=== PATIENT | male | born 1935 | race Caucasian/White ===

== ENCOUNTER 2023-11-18 12:54 | Emergency (ER) | payer OTHER ==
--- OUTSIDE RECORDS SUMMARY | 2023-11-18 13:03 | XMS REPORT | Continuity of Care Document ---
Author Name Unknown Address [address] [facility] [address] [place] [address] [facility] thconnect Address [address] 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 Name Role Phone Lillian Youngblood Primary Care Physician [phone] Sugar Ozuna Attending Clinician [phone] Doctor Unassigned, [place] Attending Clinician U Ha Flores MD Attending Clinician [phone] HA OLIVARES Attending Clinician Unavail able HA OLIVARES Attending Clinician Unavail able Alissa RN, Jose A Attending Clinician Unavail able BILL CABRERA Attending Clinician Un available Malcolm Darling MD Attending Clinician [phone] Bill Cabrera MD Attending Clinician NURIA KUMAR Attending Clinician Kei Farley, Adc [facility] Main Attending Clinician Nuria Cai MD Attending Clinician [place] Attending Clinician UnavailDonn Escalona Attending Clinician Unavail able GAYLA GARY Attending Clinician Unavailable Cyndie Nguyen Attending Clinician [phone] Cyndie RODNEY Attending Clinician Unavailable Lab, Adc Fam Pob I Attending Clinician Unavailab nancy Gonsales ENDS DOWN CHECKERReyes Dickey Attending Clinician [phone] REYES GONSALES Attending Clinician Unavailable Carley ENDS DOWN CHECKER, Eliz Enriquez Attending Clinician [phone] RADIOLOGY Attending Clinician Unavailable Radiology Attending Clinician Unavailable Bryce PEDERSON, Nadja Attending Clinician [phone] Hector Santana MD Attending Clinician [phone] BILL CABRERA Admitting Clinician Un available Bill Cabrera MD Admitting Clinician Physician, No Primary or Family Admitting Clinic malcolm Unavailable Cyndie RODNEY Admitting Clinician Unavailable LILLIAN YOUNGBLOOD Admitting Clinician Unavail able Hector Santana MD Admitting Clinician Payers Payer Name Policy Type Policy Number Effective Date Expirati on Date Source MEDICARE PART A \\T\\ B [id number] 2001 00:00:00 [facility] [place] [id number] 2016 00:00:00 Problems Condition Name Condition Details Condition Category Status Onset Date Resolution Date Last Treatment Date Treating Clinician Comments Source Stroke-lik e symptoms Stroke-lik e symptoms Disease Active 09-13 00:00: 00 [facility] Thigh pain Thigh pain Disease Active 04-29 00:00: 00 [facility] Allergies, Adverse Reactions, Alerts Allergy Name Allergy Type Status Severity Reaction(s) Onset Date Inactive Date Treating Clinician Comments Source No Known Allergie s DA Active U 12-11 00:00: 00 [facility] No Known Allergie s DA Active U 12-11 00:00: 00 [facility] No Known Drug Allergie s DA Active U 05-14 00:00: 00 [facility] No Known Food Allergie s DA Active U 05-14 00:00: 00 [facility] No Known Other Allergie s DA Active U 05-14 00:00: 00 [facility] No Known Contrast Allergie s DA Active U 05-14 00:00: 00 [facility] No Known Drug Intolera nces DA Active U 2001-08 00:00: 00 [facility] NO KNOWN ALLERGIE S Drug Class Active [facility] Social History Social Habit Start Date Stop Date Quantity Comments Source History of tobacco use Current smoker [facility] History SDOH Social Connections Get Together [facility] History SDOH Social Connections Taoist [facility] History SDOH Social Connections Membership [facility] History SDOH Social Connections Meetings [facility] 2023-03-31 00:00:00 2023-03-31 00:00:00 Ex-drinker (finding) [facility] History of Social function 2023-02-28 00:00:00 2023-02-28 00:00:00 [facility] Exposure to SARS-CoV-2 (event) 2022-09-24 00:00:00 2022-10-04 09:10:00 Not sure [facility] Tobacco Comment 2022-10-04 00:00:00 2022-10-04 00:00:00 quit 20 yrs [facility] Tobacco use and exposure 2022-10-04 00:00:00 2022-10-04 00:00:00 Smokeless tobacco non-user [facility] History SDOH Alcohol Frequency 2022-09-13 00:00:00 2022-09-13 00:00:00 1 [facility] History SDOH Alcohol Std Drinks 2022-09-13 00:00:00 2022-09-13 00:00:00 0 [facility] History SDOH Alcohol Binge 2022-09-13 00:00:00 2022-09-13 00:00:00 1 [facility] History SDOH Social Connections Phone 2022-09-13 00:00:00 2022-09-13 00:00:00 5 [facility] History SDOH Social Connections Living 2022-09-13 00:00:00 2022-09-13 00:00:00 4 [facility] History SDOH Physical Activity DPW 2022-09-13 00:00:00 2022-09-13 00:00:00 3 [facility] History SDOH Physical Activity MPS 2022-09-13 00:00:00 2022-09-13 00:00:00 6 [facility] History SDOH Financial 2022-09-13 00:00:00 2022-09-13 00:00:00 5 [facility] History SDOH Food Worry 2022-09-13 00:00:00 2022-09-13 00:00:00 1 [facility] History SDOH Food Scarcity 2022-09-13 00:00:00 2022-09-13 00:00:00 1 [facility] History SDOH Transport Med 2022-09-13 00:00:00 2022-09-13 00:00:00 2 [facility] History SDOH Transport Non-Med 2022-09-13 00:00:00 2022-09-13 00:00:00 2 [facility] Sex Assigned At 1935 00:00:00 1935 00:00:00 [facility] Smoking Status Start Date Stop Date Source Ex-smoker 2022-10-04 00:00:00 2022-10-04 [facility]:00[facility]00 [facility] Medications Ordered Medication Name Filled Medication Name Start Date Stop Date Current Medication? Ordering Clinician Indication Dosage Frequency Signature (SIG) Comments Components Source levETIRAcet am 250 mg tablet 2022-08 00:00: 00 Yes [id number] TAKE ONE TABLET BY MOUTH EVERY MORNING AND IN THE EVENING [facility] LEVETIRACET AM 250 mg tablet 2022-08 00:00: 00 Yes [id number] TAKE ONE TABLET BY MOUTH EVERY MORNING AND TAKE ONE TABLET BY MOUTH EVERY EVENING [facility] LEVETIRACET AM 250 mg tablet 2022-08 0-20 00:00: 00 07-12 00:00 :00 No [id number] TAKE ONE TABLET BY MOUTH EVERY MORNING AND TAKE ONE TABLET BY MOUTH EVERY EVENING [facility] LEVETIRACET AM 250 mg tablet 2022-0 915 00:00: 00 Yes [id number] TAKE ONE TABLET BY MOUTH EVERY MORNING AND TAKE ONE TABLET BY MOUTH EVERY EVENING [facility] LEVETIRACET AM 250 mg tablet 0 915 00:00: 00 06-09 00:00 :00 No [id number] TAKE ONE TABLET BY MOUTH EVERY MORNING AND TAKE ONE TABLET BY MOUTH EVERY EVENING [facility] omeprazole 40 mg capsule 0 8- 00:00: 00 Yes 40mg Take 1 capsule by mouth in the morning. [facility] omeprazole 40 mg capsule 2022-0 8 00:00: 00 Yes 40mg Take 1 capsule by mouth in the morning. [facility] omeprazole 40 mg capsule 0 8 00:00: 00 Yes 40mg Take 1 capsule by mouth in the morning. [facility] levETIRAcet am 250 mg tablet 0 8 00:00: 00 Yes [id number] 250mg Take 1 tablet by mouth in the morning and 1 tablet in the evening. [facility] levETIRAcet am 250 mg tablet 0 8-11 00:00: 00 Yes [id number] 250mg Take 1 tablet by mouth in the morning and 1 tablet in the evening. [facility] levETIRAcet am 250 mg tablet 2022-0 8-11 00:00: 00 05-05 00:00 :00 No [id number] 250mg Take 1 tablet by mouth in the morning and 1 tablet in the evening. [facility] meloxicam 7.5 mg tablet 2022-0 7-19 00:00: 00 Yes 7.5mg Take 1 tablet by mouth in the morning. [facility] meloxicam 7.5 mg tablet 0 719 00:00: 00 Yes 7.5mg Take 1 tablet by mouth in the morning. [facility] meloxicam 7.5 mg tablet 7 00:00: 00 Yes 7.5mg Take 1 tablet by mouth in the morning. [facility] perflutren protein-A microsphr (OPTISON) injection 3 mL 09-14 18:30: 00 09-14 17:55 :00 No [id number] 3mL 3 mL, IV Push, ONCE, 1 dose, On Mon09/14/22 at 1230, Routine [facility] Saline Bubble Study 09-14 18:23: 17 Yes [id number] 6mL 6 mL, Injection, SEE-INSTRU CTIONS, Starting on Mon09/14/22 at 1223, Until Discontinu ed, Routine [facility] Saline Bubble Study 09-14 18:23: 15 Yes [id number] 6mL 6 mL, Injection, SEE-INSTRU CTIONS, Starting on Mon09/14/22 at 1223, Until Discontinu ed, Routine [facility] ezetimibe (ZETIA) tablet 10 mg 09-14 15:00: 00 Yes 10mg 10 mg, Oral, DAILY, First dose on Mon09/14/22 at 0900, Until Discontinu ed, Routine [facility] ERGOCALCIFE ROL, VITAMIN D2, (VITAMIN D ORAL) 09-14 14:37: 24 Yes Take by mouth. [facility] PREDNISONE, BULK, MISC 09-14 14:37: 24 Yes 10mg 10 mg. [facility] rosuvastati n 40 mg tablet 09-14 14:37: 24 Yes 40mg Take 40 mg by mouth at bedtime. [facility] lisinopriL 10 mg tablet 09-14 14:37: 24 Yes 10mg Take 10 mg by mouth daily. [facility] fluticasone /umeclidin/ vilanter (TRELEGY ELLIPTA INHALE) 09-14 14:37: 24 Yes Inhale. [facility] pumpkin seed oil/saw palmetto (SAW PALMETTO-PU MPKIN SEED OIL ORAL) 09-14 14:37: 24 Yes Take by mouth. [facility] amLODIPine (NORVASC) 10 mg tablet 09-14 14:37: 24 Yes 5mg Take 5 mg by mouth daily. [facility] levothyroxi ne (SYNTHROID) 125 mcg tablet 09-14 14:37: 24 Yes 125ug Take 125 mcg by mouth every morning. [facility] tamsulosin (FLOMAX) 0.4 mg 24 hr capsule 09-14 14:37: 24 Yes Take by mouth daily. [facility] NAPROXEN SODIUM (ALEVE ORAL) 09-14 14:37: 24 Yes Take by mouth. [facility] aspirin 81 mg chewable tablet 09-14 14:37: 24 Yes 81mg Take 81 mg by mouth daily. [facility] SAW PALMETTO ORAL 09-14 14:37: 24 Yes 900mg Take 900 mg by mouth. [facility] CALCIUM-MAG NESIUM-ZINC ORAL 09-14 14:37: 24 Yes Take by mouth. [facility] folic acid (FOLVITE) 800 mcg tablet 09-14 14:37: 24 Yes 800ug Take 800 mcg by mouth daily. [facility] Cranberry Extract (CRANBERRY) 450 mg Tab 09-14 14:37: 24 Yes 450mg Take 450 mg by mouth. [facility] pyridoxine, vitamin B6, (VITAMIN B-6) 200 mg tablet 09-14 14:37: 24 Yes 200mg Take 200 mg by mouth daily. [facility] ascorbic acid, vitamin C, (VITAMIN C) 500 mg tablet 09-14 14:37: 24 Yes 500mg Take 500 mg by mouth daily. [facility] DOCOSAHEXAN OIC ACID/EPA (FISH OIL ORAL) 09-14 14:37: 24 Yes 3000mg Take 3,000 mg by mouth. [facility] vitamin B-12 (VITAMIN B-12) 1,000 mcg tablet 09-14 14:37: 24 Yes 1000ug Take 1,000 mcg by mouth daily. [facility] ERGOCALCIFE ROL, VITAMIN D2, (VITAMIN D ORAL) 09-14 14:37: 24 Yes Take by mouth. [facility] PREDNISONE, BULK, MISC 09-14 14:37: 24 Yes 10mg 10 mg. [facility] rosuvastati n 40 mg tablet 09-14 14:37: 24 Yes 40mg Take 40 mg by mouth at bedtime. [facility] lisinopriL 10 mg tablet 09-14 14:37: 24 Yes 10mg Take 10 mg by mouth daily. [facility] fluticasone /umeclidin/ vilanter (TRELEGY ELLIPTA INHALE) 09-14 14:37: 24 Yes Inhale. [facility] pumpkin seed oil/saw palmetto (SAW PALMETTO-PU MPKIN SEED OIL ORAL) 09-14 14:37: 24 Yes Take by mouth. [facility] amLODIPine (NORVASC) 10 mg tablet 09-14 14:37: 24 Yes 5mg Take 5 mg by mouth daily. [facility] levothyroxi ne (SYNTHROID) 125 mcg tablet 09-14 14:37: 24 Yes 125ug Take 125 mcg by mouth every morning. [facility] tamsulosin (FLOMAX) 0.4 mg 24 hr capsule 09-14 14:37: 24 Yes Take by mouth daily. [facility] NAPROXEN SODIUM (ALEVE ORAL) 09-14 14:37: 24 Yes Take by mouth. [facility] aspirin 81 mg chewable tablet 09-14 14:37: 24 Yes 81mg Take 81 mg by mouth daily. [facility] SAW PALMETTO ORAL 09-14 14:37: 24 Yes 900mg Take 900 mg by mouth. [facility] CALCIUM-MAG NESIUM-ZINC ORAL 09-14 14:37: 24 Yes Take by mouth. [facility] folic acid (FOLVITE) 800 mcg tablet 09-14 14:37: 24 Yes 800ug Take 800 mcg by mouth daily. [facility] Cranberry Extract (CRANBERRY) 450 mg Tab 09-14 14:37: 24 Yes 450mg Take 450 mg by mouth. [facility] pyridoxine, vitamin B6, (VITAMIN B-6) 200 mg tablet 09-14 14:37: 24 Yes 200mg Take 200 mg by mouth daily. [facility] ascorbic acid, vitamin C, (VITAMIN C) 500 mg tablet 09-14 14:37: 24 Yes 500mg Take 500 mg by mouth daily. [facility] DOCOSAHEXAN OIC ACID/EPA (FISH OIL ORAL) 09-14 14:37: 24 Yes 3000mg Take 3,000 mg by mouth. [facility] vitamin B-12 (VITAMIN B-12) 1,000 mcg tablet 09-14 14:37: 24 Yes 1000ug Take 1,000 mcg by mouth daily. [facility] ERGOCALCIFE ROL, VITAMIN D2, (VITAMIN D ORAL) 09-14 14:37: 24 Yes Take by mouth. [facility] PREDNISONE, BULK, MISC 09-14 14:37: 24 Yes 10mg 10 mg. [facility] rosuvastati n 40 mg tablet 09-14 14:37: 24 Yes 40mg Take 40 mg by mouth at bedtime. [facility] lisinopriL 10 mg tablet 09-14 14:37: 24 Yes 10mg Take 10 mg by mouth daily. [facility] fluticasone /umeclidin/ vilanter (TRELEGY ELLIPTA INHALE) 09-14 14:37: 24 Yes Inhale. [facility] pumpkin seed oil/saw palmetto (SAW PALMETTO-PU MPKIN SEED OIL ORAL) 09-14 14:37: 24 Yes Take by mouth. [facility] amLODIPine (NORVASC) 10 mg tablet 09-14 14:37: 24 Yes 5mg Take 5 mg by mouth daily. [facility] levothyroxi ne (SYNTHROID) 125 mcg tablet 09-14 14:37: 24 Yes 125ug Take 125 mcg by mouth every morning. [facility] tamsulosin (FLOMAX) 0.4 mg 24 hr capsule 09-14 14:37: 24 Yes Take by mouth daily. [facility] NAPROXEN SODIUM (ALEVE ORAL) 09-14 14:37: 24 Yes Take by mouth. [facility] aspirin 81 mg chewable tablet 09-14 14:37: 24 Yes 81mg Take 81 mg by mouth daily. [facility] SAW PALMETTO ORAL 09-14 14:37: 24 Yes 900mg Take 900 mg by mouth. [facility] CALCIUM-MAG NESIUM-ZINC ORAL 09-14 14:37: 24 Yes Take by mouth. [facility] folic acid (FOLVITE) 800 mcg tablet 09-14 14:37: 24 Yes 800ug Take 800 mcg by mouth daily. [facility] Cranberry Extract (CRANBERRY) 450 mg Tab 09-14 14:37: 24 Yes 450mg Take 450 mg by mouth. [facility] pyridoxine, vitamin B6, (VITAMIN B-6) 200 mg tablet 09-14 14:37: 24 Yes 200mg Take 200 mg by mouth daily. [facility] ascorbic acid, vitamin C, (VITAMIN C) 500 mg tablet 09-14 14:37: 24 Yes 500mg Take 500 mg by mouth daily. [facility] DOCOSAHEXAN OIC ACID/EPA (FISH OIL ORAL) 09-14 14:37: 24 Yes 3000mg Take 3,000 mg by mouth. [facility] vitamin B-12 (VITAMIN B-12) 1,000 mcg tablet 09-14 14:37: 24 Yes 1000ug Take 1,000 mcg by mouth daily. [facility] ERGOCALCIFE ROL, VITAMIN D2, (VITAMIN D ORAL) 09-14 14:37: 24 Yes Take by mouth. [facility] PREDNISONE, BULK, MISC 09-14 14:37: 24 Yes 10mg 10 mg. [facility] rosuvastati n 40 mg tablet 09-14 14:37: 24 Yes 40mg Take 40 mg by mouth at bedtime. [facility] lisinopriL 10 mg tablet 09-14 14:37: 24 Yes 10mg Take 10 mg by mouth daily. [facility] fluticasone /umeclidin/ vilanter (TRELEGY ELLIPTA INHALE) 09-14 14:37: 24 Yes Inhale. [facility] pumpkin seed oil/saw palmetto (SAW PALMETTO-PU MPKIN SEED OIL ORAL) 09-14 14:37: 24 Yes Take by mouth. [facility] amLODIPine (NORVASC) 10 mg tablet 09-14 14:37: 24 Yes 5mg Take 5 mg by mouth daily. [facility] levothyroxi ne (SYNTHROID) 125 mcg tablet 09-14 14:37: 24 Yes 125ug Take 125 mcg by mouth every morning. [facility] tamsulosin (FLOMAX) 0.4 mg 24 hr capsule 09-14 14:37: 24 Yes Take by mouth daily. [facility] NAPROXEN SODIUM (ALEVE ORAL) 09-14 14:37: 24 Yes Take by mouth. [facility] aspirin 81 mg chewable tablet 09-14 14:37: 24 Yes 81mg Take 81 mg by mouth daily. [facility] SAW PALMETTO ORAL 09-14 14:37: 24 Yes 900mg Take 900 mg by mouth. [facility] CALCIUM-MAG NESIUM-ZINC ORAL 09-14 14:37: 24 Yes Take by mouth. [facility] folic acid (FOLVITE) 800 mcg tablet 09-14 14:37: 24 Yes 800ug Take 800 mcg by mouth daily. [facility] Cranberry Extract (CRANBERRY) 450 mg Tab 09-14 14:37: 24 Yes 450mg Take 450 mg by mouth. [facility] pyridoxine, vitamin B6, (VITAMIN B-6) 200 mg tablet 09-14 14:37: 24 Yes 200mg Take 200 mg by mouth daily. [facility] ascorbic acid, vitamin C, (VITAMIN C) 500 mg tablet 09-14 14:37: 24 Yes 500mg Take 500 mg by mouth daily. [facility] DOCOSAHEXAN OIC ACID/EPA (FISH OIL ORAL) 09-14 14:37: 24 Yes 3000mg Take 3,000 mg by mouth. [facility] vitamin B-12 (VITAMIN B-12) 1,000 mcg tablet 09-14 14:37: 24 Yes 1000ug Take 1,000 mcg by mouth daily. [facility] ERGOCALCIFE ROL, VITAMIN D2, (VITAMIN D ORAL) 09-14 14:37: 24 Yes Take by mouth. [facility] PREDNISONE, BULK, MISC 09-14 14:37: 24 Yes 10mg 10 mg. [facility] rosuvastati n 40 mg tablet 09-14 14:37: 24 Yes 40mg Take 40 mg by mouth at bedtime. [facility] lisinopriL 10 mg tablet 09-14 14:37: 24 Yes 10mg Take 10 mg by mouth daily. [facility] fluticasone /umeclidin/ vilanter (TRELEGY ELLIPTA INHALE) 09-14 14:37: 24 Yes Inhale. [facility] pumpkin seed oil/saw palmetto (SAW PALMETTO-PU MPKIN SEED OIL ORAL) 09-14 14:37: 24 Yes Take by mouth. [facility] amLODIPine (NORVASC) 10 mg tablet 09-14 14:37: 24 Yes 5mg Take 5 mg by mouth daily. [facility] levothyroxi ne (SYNTHROID) 125 mcg tablet 09-14 14:37: 24 Yes 125ug Take 125 mcg by mouth every morning. [facility] tamsulosin (FLOMAX) 0.4 mg 24 hr capsule 09-14 14:37: 24 Yes Take by mouth daily. [facility] NAPROXEN SODIUM (ALEVE ORAL) 09-14 14:37: 24 Yes Take by mouth. [facility] aspirin 81 mg chewable tablet 09-14 14:37: 24 Yes 81mg Take 81 mg by mouth daily. [facility] SAW PALMETTO ORAL 09-14 14:37: 24 Yes 900mg Take 900 mg by mouth. [facility] CALCIUM-MAG NESIUM-ZINC ORAL 09-14 14:37: 24 Yes Take by mouth. [facility] folic acid (FOLVITE) 800 mcg tablet 09-14 14:37: 24 Yes 800ug Take 800 mcg by mouth daily. [facility] Cranberry Extract (CRANBERRY) 450 mg Tab 09-14 14:37: 24 Yes 450mg Take 450 mg by mouth. [facility] pyridoxine, vitamin B6, (VITAMIN B-6) 200 mg tablet 09-14 14:37: 24 Yes 200mg Take 200 mg by mouth daily. [facility] ascorbic acid, vitamin C, (VITAMIN C) 500 mg tablet 09-14 14:37: 24 Yes 500mg Take 500 mg by mouth daily. [facility] DOCOSAHEXAN OIC ACID/EPA (FISH OIL ORAL) 09-14 14:37: 24 Yes 3000mg Take 3,000 mg by mouth. [facility] vitamin B-12 (VITAMIN B-12) 1,000 mcg tablet 09-14 14:37: 24 Yes 1000ug Take 1,000 mcg by mouth daily. [facility] ERGOCALCIFE ROL, VITAMIN D2, (VITAMIN D ORAL) 09-14 14:37: 24 Yes Take by mouth. [facility] PREDNISONE, BULK, MISC 09-14 14:37: 24 Yes 10mg 10 mg. [facility] rosuvastati n 40 mg tablet 09-14 14:37: 24 Yes 40mg Take 40 mg by mouth at bedtime. [facility] lisinopriL 10 mg tablet 09-14 14:37: 24 Yes 10mg Take 10 mg by mouth daily. [facility] fluticasone /umeclidin/ vilanter (TRELEGY ELLIPTA INHALE) 09-14 14:37: 24 Yes Inhale. [facility] pumpkin seed oil/saw palmetto (SAW PALMETTO-PU MPKIN SEED OIL ORAL) 09-14 14:37: 24 Yes Take by mouth. [facility] amLODIPine (NORVASC) 10 mg tablet 09-14 14:37: 24 Yes 5mg Take 5 mg by mouth daily. [facility] levothyroxi ne (SYNTHROID) 125 mcg tablet 09-14 14:37: 24 Yes 125ug Take 125 mcg by mouth every morning. [facility] tamsulosin (FLOMAX) 0.4 mg 24 hr capsule 09-14 14:37: 24 Yes Take by mouth daily. [facility] NAPROXEN SODIUM (ALEVE ORAL) 09-14 14:37: 24 Yes Take by mouth. [facility] aspirin 81 mg chewable tablet 09-14 14:37: 24 Yes 81mg Take 81 mg by mouth daily. [facility] SAW PALMETTO ORAL 09-14 14:37: 24 Yes 900mg Take 900 mg by mouth. [facility] CALCIUM-MAG NESIUM-ZINC ORAL 09-14 14:37: 24 Yes Take by mouth. [facility] folic acid (FOLVITE) 800 mcg tablet 09-14 14:37: 24 Yes 800ug Take 800 mcg by mouth daily. [facility] Cranberry Extract (CRANBERRY) 450 mg Tab 09-14 14:37: 24 Yes 450mg Take 450 mg by mouth. [facility] pyridoxine, vitamin B6, (VITAMIN B-6) 200 mg tablet 09-14 14:37: 24 Yes 200mg Take 200 mg by mouth daily. [facility] ascorbic acid, vitamin C, (VITAMIN C) 500 mg tablet 09-14 14:37: 24 Yes 500mg Take 500 mg by mouth daily. [facility] DOCOSAHEXAN OIC ACID/EPA (FISH OIL ORAL) 09-14 14:37: 24 Yes 3000mg Take 3,000 mg by mouth. [facility] vitamin B-12 (VITAMIN B-12) 1,000 mcg tablet 09-14 14:37: 24 Yes 1000ug Take 1,000 mcg by mouth daily. [facility] ERGOCALCIFE ROL, VITAMIN D2, (VITAMIN D ORAL) 09-14 14:37: 24 Yes Take by mouth. [facility] PREDNISONE, BULK, MISC 09-14 14:37: 24 Yes 10mg 10 mg. [facility] rosuvastati n 40 mg tablet 09-14 14:37: 24 Yes 40mg Take 40 mg by mouth at bedtime. [facility] lisinopriL 10 mg tablet 09-14 14:37: 24 Yes 10mg Take 10 mg by mouth daily. [facility] fluticasone /umeclidin/ vilanter (TRELEGY ELLIPTA INHALE) 09-14 14:37: 24 Yes Inhale. [facility] pumpkin seed oil/saw palmetto (SAW PALMETTO-PU MPKIN SEED OIL ORAL) 09-14 14:37: 24 Yes Take by mouth. [facility] amLODIPine (NORVASC) 10 mg tablet 09-14 14:37: 24 Yes 5mg Take 5 mg by mouth daily. [facility] levothyroxi ne (SYNTHROID) 125 mcg tablet 09-14 14:37: 24 Yes 125ug Take 125 mcg by mouth every morning. [facility] tamsulosin (FLOMAX) 0.4 mg 24 hr capsule 09-14 14:37: 24 Yes Take by mouth daily. [facility] NAPROXEN SODIUM (ALEVE ORAL) 09-14 14:37: 24 Yes Take by mouth. [facility] aspirin 81 mg chewable tablet 09-14 14:37: 24 Yes 81mg Take 81 mg by mouth daily. [facility] SAW PALMETTO ORAL 09-14 14:37: 24 Yes 900mg Take 900 mg by mouth. [facility] CALCIUM-MAG NESIUM-ZINC ORAL 09-14 14:37: 24 Yes Take by mouth. [facility] folic acid (FOLVITE) 800 mcg tablet 09-14 14:37: 24 Yes 800ug Take 800 mcg by mouth daily. [facility] Cranberry Extract (CRANBERRY) 450 mg Tab 09-14 14:37: 24 Yes 450mg Take 450 mg by mouth. [facility] pyridoxine, vitamin B6, (VITAMIN B-6) 200 mg tablet 09-14 14:37: 24 Yes 200mg Take 200 mg by mouth daily. [facility] ascorbic acid, vitamin C, (VITAMIN C) 500 mg tablet 09-14 14:37: 24 Yes 500mg Take 500 mg by mouth daily. [facility] DOCOSAHEXAN OIC ACID/EPA (FISH OIL ORAL) 09-14 14:37: 24 Yes 3000mg Take 3,000 mg by mouth. [facility] vitamin B-12 (VITAMIN B-12) 1,000 mcg tablet 09-14 14:37: 24 Yes 1000ug Take 1,000 mcg by mouth daily. [facility] ERGOCALCIFE ROL, VITAMIN D2, (VITAMIN D ORAL) 09-14 14:37: 24 Yes Take by mouth. [facility] PREDNISONE, BULK, MISC 09-14 14:37: 24 Yes 10mg 10 mg. [facility] rosuvastati n 40 mg tablet 09-14 14:37: 24 Yes 40mg Take 40 mg by mouth at bedtime. [facility] lisinopriL 10 mg tablet 09-14 14:37: 24 Yes 10mg Take 10 mg by mouth daily. [facility] fluticasone /umeclidin/ vilanter (TRELEGY ELLIPTA INHALE) 09-14 14:37: 24 Yes Inhale. [facility] pumpkin seed oil/saw palmetto (SAW PALMETTO-PU MPKIN SEED OIL ORAL) 09-14 14:37: 24 Yes Take by mouth. [facility] amLODIPine (NORVASC) 10 mg tablet 09-14 14:37: 24 Yes 5mg Take 5 mg by mouth daily. [facility] levothyroxi ne (SYNTHROID) 125 mcg tablet 09-14 14:37: 24 Yes 125ug Take 125 mcg by mouth every morning. [facility] tamsulosin (FLOMAX) 0.4 mg 24 hr capsule 09-14 14:37: 24 Yes Take by mouth daily. [facility] NAPROXEN SODIUM (ALEVE ORAL) 09-14 14:37: 24 Yes Take by mouth. [facility] aspirin 81 mg chewable tablet 09-14 14:37: 24 Yes 81mg Take 81 mg by mouth daily. [facility] SAW PALMETTO ORAL 09-14 14:37: 24 Yes 900mg Take 900 mg by mouth. [facility] CALCIUM-MAG NESIUM-ZINC ORAL 09-14 14:37: 24 Yes Take by mouth. [facility] folic acid (FOLVITE) 800 mcg tablet 09-14 14:37: 24 Yes 800ug Take 800 mcg by mouth daily. [facility] Cranberry Extract (CRANBERRY) 450 mg Tab 09-14 14:37: 24 Yes 450mg Take 450 mg by mouth. [facility] pyridoxine, vitamin B6, (VITAMIN B-6) 200 mg tablet 09-14 14:37: 24 Yes 200mg Take 200 mg by mouth daily. [facility] ascorbic acid, vitamin C, (VITAMIN C) 500 mg tablet 09-14 14:37: 24 Yes 500mg Take 500 mg by mouth daily. [facility] DOCOSAHEXAN OIC ACID/EPA (FISH OIL ORAL) 09-14 14:37: 24 Yes 3000mg Take 3,000 mg by mouth. [facility] vitamin B-12 (VITAMIN B-12) 1,000 mcg tablet 09-14 14:37: 24 Yes 1000ug Take 1,000 mcg by mouth daily. [facility] ERGOCALCIFE ROL, VITAMIN D2, (VITAMIN D ORAL) 09-14 14:37: 24 Yes Take by mouth. [facility] PREDNISONE, BULK, MISC 09-14 14:37: 24 Yes 10mg 10 mg. [facility] rosuvastati n 40 mg tablet 09-14 14:37: 24 Yes 40mg Take 40 mg by mouth at bedtime. [facility] lisinopriL 10 mg tablet 09-14 14:37: 24 Yes 10mg Take 10 mg by mouth daily. [facility] fluticasone /umeclidin/ vilanter (TRELEGY ELLIPTA INHALE) 09-14 14:37: 24 Yes Inhale. [facility] pumpkin seed oil/saw palmetto (SAW PALMETTO-PU MPKIN SEED OIL ORAL) 09-14 14:37: 24 Yes Take by mouth. [facility] amLODIPine (NORVASC) 10 mg tablet 09-14 14:37: 24 Yes 5mg Take 5 mg by mouth daily. [facility] levothyroxi ne (SYNTHROID) 125 mcg tablet 09-14 14:37: 24 Yes 125ug Take 125 mcg by mouth every morning. [facility] tamsulosin (FLOMAX) 0.4 mg 24 hr capsule 09-14 14:37: 24 Yes Take by mouth daily. [facility] NAPROXEN SODIUM (ALEVE ORAL) 09-14 14:37: 24 Yes Take by mouth. [facility] aspirin 81 mg chewable tablet 09-14 14:37: 24 Yes 81mg Take 81 mg by mouth daily. [facility] SAW PALMETTO ORAL 09-14 14:37: 24 Yes 900mg Take 900 mg by mouth. [facility] CALCIUM-MAG NESIUM-ZINC ORAL 09-14 14:37: 24 Yes Take by mouth. [facility] folic acid (FOLVITE) 800 mcg tablet 09-14 14:37: 24 Yes 800ug Take 800 mcg by mouth daily. [facility] Cranberry Extract (CRANBERRY) 450 mg Tab 09-14 14:37: 24 Yes 450mg Take 450 mg by mouth. [facility] pyridoxine, vitamin B6, (VITAMIN B-6) 200 mg tablet 09-14 14:37: 24 Yes 200mg Take 200 mg by mouth daily. [facility] ascorbic acid, vitamin C, (VITAMIN C) 500 mg tablet 09-14 14:37: 24 Yes 500mg Take 500 mg by mouth daily. [facility] DOCOSAHEXAN OIC ACID/EPA (FISH OIL ORAL) 09-14 14:37: 24 Yes 3000mg Take 3,000 mg by mouth. [facility] vitamin B-12 (VITAMIN B-12) 1,000 mcg tablet 09-14 14:37: 24 Yes 1000ug Take 1,000 mcg by mouth daily. [facility] ERGOCALCIFE ROL, VITAMIN D2, (VITAMIN D ORAL) 09-14 14:37: 24 Yes Take by mouth. [facility] PREDNISONE, BULK, MISC 09-14 14:37: 24 Yes 10mg 10 mg. [facility] rosuvastati n 40 mg tablet 09-14 14:37: 24 Yes 40mg Take 40 mg by mouth at bedtime. [facility] lisinopriL 10 mg tablet 09-14 14:37: 24 Yes 10mg Take 10 mg by mouth daily. [facility] fluticasone /umeclidin/ vilanter (TRELEGY ELLIPTA INHALE) 09-14 14:37: 24 Yes Inhale. [facility] pumpkin seed oil/saw palmetto (SAW PALMETTO-PU MPKIN SEED OIL ORAL) 09-14 14:37: 24 Yes Take by mouth. [facility] amLODIPine (NORVASC) 10 mg tablet 09-14 14:37: 24 Yes 5mg Take 5 mg by mouth daily. [facility] levothyroxi ne (SYNTHROID) 125 mcg tablet 09-14 14:37: 24 Yes 125ug Take 125 mcg by mouth every morning. [facility] tamsulosin (FLOMAX) 0.4 mg 24 hr capsule 09-14 14:37: 24 Yes Take by mouth daily. [facility] NAPROXEN SODIUM (ALEVE ORAL) 09-14 14:37: 24 Yes Take by mouth. [facility] aspirin 81 mg chewable tablet 09-14 14:37: 24 Yes 81mg Take 81 mg by mouth daily. [facility] SAW PALMETTO ORAL 09-14 14:37: 24 Yes 900mg Take 900 mg by mouth. [facility] CALCIUM-MAG NESIUM-ZINC ORAL 09-14 14:37: 24 Yes Take by mouth. [facility] folic acid (FOLVITE) 800 mcg tablet 09-14 14:37: 24 Yes 800ug Take 800 mcg by mouth daily. [facility] Cranberry Extract (CRANBERRY) 450 mg Tab 09-14 14:37: 24 Yes 450mg Take 450 mg by mouth. [facility] pyridoxine, vitamin B6, (VITAMIN B-6) 200 mg tablet 09-14 14:37: 24 Yes 200mg Take 200 mg by mouth daily. [facility] ascorbic acid, vitamin C, (VITAMIN C) 500 mg tablet 09-14 14:37: 24 Yes 500mg Take 500 mg by mouth daily. [facility] DOCOSAHEXAN OIC ACID/EPA (FISH OIL ORAL) 09-14 14:37: 24 Yes 3000mg Take 3,000 mg by mouth. [facility] vitamin B-12 (VITAMIN B-12) 1,000 mcg tablet 09-14 14:37: 24 Yes 1000ug Take 1,000 mcg by mouth daily. [facility] ERGOCALCIFE ROL, VITAMIN D2, (VITAMIN D ORAL) 09-14 14:37: 24 Yes Take by mouth. [facility] PREDNISONE, BULK, MISC 09-14 14:37: 24 Yes 10mg 10 mg. [facility] rosuvastati n 40 mg tablet 09-14 14:37: 24 Yes 40mg Take 40 mg by mouth at bedtime. [facility] lisinopriL 10 mg tablet 09-14 14:37: 24 Yes 10mg Take 10 mg by mouth daily. [facility] fluticasone /umeclidin/ vilanter (TRELEGY ELLIPTA INHALE) 09-14 14:37: 24 Yes Inhale. [facility] pumpkin seed oil/saw palmetto (SAW PALMETTO-PU MPKIN SEED OIL ORAL) 09-14 14:37: 24 Yes Take by mouth. [facility] amLODIPine (NORVASC) 10 mg tablet 09-14 14:37: 24 Yes 5mg Take 5 mg by mouth daily. [facility] levothyroxi ne (SYNTHROID) 125 mcg tablet 09-14 14:37: 24 Yes 125ug Take 125 mcg by mouth every morning. [facility] tamsulosin (FLOMAX) 0.4 mg 24 hr capsule 09-14 14:37: 24 Yes Take by mouth daily. [facility] NAPROXEN SODIUM (ALEVE ORAL) 09-14 14:37: 24 Yes Take by mouth. [facility] aspirin 81 mg chewable tablet 09-14 14:37: 24 Yes 81mg Take 81 mg by mouth daily. [facility] SAW PALMETTO ORAL 09-14 14:37: 24 Yes 900mg Take 900 mg by mouth. [facility] CALCIUM-MAG NESIUM-ZINC ORAL 09-14 14:37: 24 Yes Take by mouth. [facility] folic acid (FOLVITE) 800 mcg tablet 09-14 14:37: 24 Yes 800ug Take 800 mcg by mouth daily. [facility] Cranberry Extract (CRANBERRY) 450 mg Tab 09-14 14:37: 24 Yes 450mg Take 450 mg by mouth. [facility] pyridoxine, vitamin B6, (VITAMIN B-6) 200 mg tablet 09-14 14:37: 24 Yes 200mg Take 200 mg by mouth daily. [facility] ascorbic acid, vitamin C, (VITAMIN C) 500 mg tablet 09-14 14:37: 24 Yes 500mg Take 500 mg by mouth daily. [facility] DOCOSAHEXAN OIC ACID/EPA (FISH OIL ORAL) 09-14 14:37: 24 Yes 3000mg Take 3,000 mg by mouth. [facility] vitamin B-12 (VITAMIN B-12) 1,000 mcg tablet 09-14 14:37: 24 Yes 1000ug Take 1,000 mcg by mouth daily. [facility] ERGOCALCIFE ROL, VITAMIN D2, (VITAMIN D ORAL) 09-14 14:37: 24 Yes Take by mouth. [facility] PREDNISONE, BULK, MISC 09-14 14:37: 24 Yes 10mg 10 mg. [facility] rosuvastati n 40 mg tablet 09-14 14:37: 24 Yes 40mg Take 40 mg by mouth at bedtime. [facility] lisinopriL 10 mg tablet 09-14 14:37: 24 Yes 10mg Take 10 mg by mouth daily. [facility] fluticasone /umeclidin/ vilanter (TRELEGY ELLIPTA INHALE) 09-14 14:37: 24 Yes Inhale. [facility] pumpkin seed oil/saw palmetto (SAW PALMETTO-PU MPKIN SEED OIL ORAL) 09-14 14:37: 24 Yes Take by mouth. [facility] amLODIPine (NORVASC) 10 mg tablet 09-14 14:37: 24 Yes 5mg Take 5 mg by mouth daily. [facility] levothyroxi ne (SYNTHROID) 125 mcg tablet 09-14 14:37: 24 Yes 125ug Take 125 mcg by mouth every morning. [facility] tamsulosin (FLOMAX) 0.4 mg 24 hr capsule 09-14 14:37: 24 Yes Take by mouth daily. [facility] NAPROXEN SODIUM (ALEVE ORAL) 09-14 14:37: 24 Yes Take by mouth. [facility] aspirin 81 mg chewable tablet 09-14 14:37: 24 Yes 81mg Take 81 mg by mouth daily. [facility] SAW PALMETTO ORAL 09-14 14:37: 24 Yes 900mg Take 900 mg by mouth. [facility] CALCIUM-MAG NESIUM-ZINC ORAL 09-14 14:37: 24 Yes Take by mouth. [facility] folic acid (FOLVITE) 800 mcg tablet 09-14 14:37: 24 Yes 800ug Take 800 mcg by mouth daily. [facility] Cranberry Extract (CRANBERRY) 450 mg Tab 09-14 14:37: 24 Yes 450mg Take 450 mg by mouth. [facility] pyridoxine, vitamin B6, (VITAMIN B-6) 200 mg tablet 09-14 14:37: 24 Yes 200mg Take 200 mg by mouth daily. [facility] ascorbic acid, vitamin C, (VITAMIN C) 500 mg tablet 09-14 14:37: 24 Yes 500mg Take 500 mg by mouth daily. [facility] DOCOSAHEXAN OIC ACID/EPA (FISH OIL ORAL) 09-14 14:37: 24 Yes 3000mg Take 3,000 mg by mouth. [facility] vitamin B-12 (VITAMIN B-12) 1,000 mcg tablet 09-14 14:37: 24 Yes 1000ug Take 1,000 mcg by mouth daily. [facility] ERGOCALCIFE ROL, VITAMIN D2, (VITAMIN D ORAL) 09-14 14:37: 24 Yes Take by mouth. [facility] PREDNISONE, BULK, MISC 09-14 14:37: 24 Yes 10mg 10 mg. [facility] rosuvastati n 40 mg tablet 09-14 14:37: 24 Yes 40mg Take 40 mg by mouth at bedtime. [facility] lisinopriL 10 mg tablet 09-14 14:37: 24 Yes 10mg Take 10 mg by mouth daily. [facility] fluticasone /umeclidin/ vilanter (TRELEGY ELLIPTA INHALE) 09-14 14:37: 24 Yes Inhale. [facility] pumpkin seed oil/saw palmetto (SAW PALMETTO-PU MPKIN SEED OIL ORAL) 09-14 14:37: 24 Yes Take by mouth. [facility] amLODIPine (NORVASC) 10 mg tablet 09-14 14:37: 24 Yes 5mg Take 5 mg by mouth daily. [facility] levothyroxi ne (SYNTHROID) 125 mcg tablet 09-14 14:37: 24 Yes 125ug Take 125 mcg by mouth every morning. [facility] tamsulosin (FLOMAX) 0.4 mg 24 hr capsule 09-14 14:37: 24 Yes Take by mouth daily. [facility] NAPROXEN SODIUM (ALEVE ORAL) 09-14 14:37: 24 Yes Take by mouth. [facility] aspirin 81 mg chewable tablet 09-14 14:37: 24 Yes 81mg Take 81 mg by mouth daily. [facility] SAW PALMETTO ORAL 09-14 14:37: 24 Yes 900mg Take 900 mg by mouth. [facility] CALCIUM-MAG NESIUM-ZINC ORAL 09-14 14:37: 24 Yes Take by mouth. [facility] folic acid (FOLVITE) 800 mcg tablet 09-14 14:37: 24 Yes 800ug Take 800 mcg by mouth daily. [facility] Cranberry Extract (CRANBERRY) 450 mg Tab 09-14 14:37: 24 Yes 450mg Take 450 mg by mouth. [facility] pyridoxine, vitamin B6, (VITAMIN B-6) 200 mg tablet 09-14 14:37: 24 Yes 200mg Take 200 mg by mouth daily. [facility] ascorbic acid, vitamin C, (VITAMIN C) 500 mg tablet 09-14 14:37: 24 Yes 500mg Take 500 mg by mouth daily. [facility] DOCOSAHEXAN OIC ACID/EPA (FISH OIL ORAL) 09-14 14:37: 24 Yes 3000mg Take 3,000 mg by mouth. [facility] vitamin B-12 (VITAMIN B-12) 1,000 mcg tablet 09-14 14:37: 24 Yes 1000ug Take 1,000 mcg by mouth daily. [facility] ERGOCALCIFE ROL, VITAMIN D2, (VITAMIN D ORAL) 09-14 14:37: 24 Yes Take by mouth. [facility] PREDNISONE, BULK, MISC 09-14 14:37: 24 Yes 10mg 10 mg. [facility] rosuvastati n 40 mg tablet 09-14 14:37: 24 Yes 40mg Take 40 mg by mouth at bedtime. [facility] lisinopriL 10 mg tablet 09-14 14:37: 24 Yes 10mg Take 10 mg by mouth daily. [facility] fluticasone /umeclidin/ vilanter (TRELEGY ELLIPTA INHALE) 09-14 14:37: 24 Yes Inhale. [facility] pumpkin seed oil/saw palmetto (SAW PALMETTO-PU MPKIN SEED OIL ORAL) 09-14 14:37: 24 Yes Take by mouth. [facility] amLODIPine (NORVASC) 10 mg tablet 09-14 14:37: 24 Yes 5mg Take 5 mg by mouth daily. [facility] levothyroxi ne (SYNTHROID) 125 mcg tablet 09-14 14:37: 24 Yes 125ug Take 125 mcg by mouth every morning. [facility] tamsulosin (FLOMAX) 0.4 mg 24 hr capsule 09-14 14:37: 24 Yes Take by mouth daily. [facility] NAPROXEN SODIUM (ALEVE ORAL) 09-14 14:37: 24 Yes Take by mouth. [facility] aspirin 81 mg chewable tablet 09-14 14:37: 24 Yes 81mg Take 81 mg by mouth daily. [facility] SAW PALMETTO ORAL 09-14 14:37: 24 Yes 900mg Take 900 mg by mouth. [facility] CALCIUM-MAG NESIUM-ZINC ORAL 09-14 14:37: 24 Yes Take by mouth. [facility] folic acid (FOLVITE) 800 mcg tablet 09-14 14:37: 24 Yes 800ug Take 800 mcg by mouth daily. [facility] Cranberry Extract (CRANBERRY) 450 mg Tab 09-14 14:37: 24 Yes 450mg Take 450 mg by mouth. [facility] pyridoxine, vitamin B6, (VITAMIN B-6) 200 mg tablet 09-14 14:37: 24 Yes 200mg Take 200 mg by mouth daily. [facility] ascorbic acid, vitamin C, (VITAMIN C) 500 mg tablet 09-14 14:37: 24 Yes 500mg Take 500 mg by mouth daily. [facility] DOCOSAHEXAN OIC ACID/EPA (FISH OIL ORAL) 09-14 14:37: 24 Yes 3000mg Take 3,000 mg by mouth. [facility] vitamin B-12 (VITAMIN B-12) 1,000 mcg tablet 09-14 14:37: 24 Yes 1000ug Take 1,000 mcg by mouth daily. [facility] rosuvastati n (CRESTOR) tablet 40 mg 09-14 03:00: 00 Yes 40mg 40 mg, Oral, QHS, First dose on Mon09/13/22 at 2100, Until Discontinu ed, Routine [facility] levETIRAcet am (KEPPRA) tablet 750 mg 09-14 02:00: 00 Yes 750mg 750 mg, Oral, BID, First dose (after last modificati on) on Mon09/13/22 at 2000, Until Discontinu ed, Routine [facility] levETIRAcet am 750 mg tablet 09-14 00:00: 00 01-13 04:59 :00 No [id number] 750mg Take 1 tablet by mouth in the morning and 1 tablet in the evening. Do all this for 120 days. [facility] levETIRAcet am 750 mg tablet 09-14 00:00: 00 01-13 04:59 :00 No [id number] 750mg Take 1 tablet by mouth in the morning and 1 tablet in the evening. Do all this for 120 days. [facility] levETIRAcet am 750 mg tablet 09-14 00:00: 00 01-13 04:59 :00 No [id number] 750mg Take 1 tablet by mouth in the morning and 1 tablet in the evening. Do all this for 120 days. [facility] levETIRAcet am 750 mg tablet 09-14 00:00: 00 01-13 04:59 :00 No [id number] 750mg Take 1 tablet by mouth in the morning and 1 tablet in the evening. Do all this for 120 days. [facility] levETIRAcet am 750 mg tablet 09-14 00:00: 00 01-13 04:59 :00 No [id number] 750mg Take 1 tablet by mouth in the morning and 1 tablet in the evening. Do all this for 120 days. [facility] pantoprazol e (PROTONIX) EC tablet 40 mg 09-13 15:00: 00 Yes 40mg 40 mg, Oral, DAILY, First dose on Mon09/13/22 at 0900, Until Discontinu ed, Routine [facility] vitamin B-12 (CYANOCOBAL DUPREE) tablet 1,000 mcg 09-13 15:00: 00 Yes 1000ug 1,000 mcg, Oral, DAILY, First dose on Mon09/13/22 at 0900, Until Discontinu ed, Routine [facility] aspirin chewable tablet 81 mg 09-13 15:00: 00 Yes 81mg 81 mg, Oral, DAILY, First dose on Mon09/13/22 at 0900, Until Discontinu ed, Routine [facility] heparin (porcine) injection 5,000 Units 09-13 14:00: 00 Yes 5000U 5,000 Units, Subcutaneo us, Q12H, First dose on Mon09/13/22 at 0800, Until Discontinu ed, Routine [facility] levothyroxi ne (SYNTHROID) tablet 125 mcg 09-13 12:00: 00 Yes 125ug 125 mcg, Oral, QAM-0600, First dose on Mon09/13/22 at 0600, Until Discontinu ed, Routine [facility] labetaloL (NORMODYNE) injection 10 mg 09-13 10:39: 45 Yes 10mg 10 mg, Slow IV Push, [id number], 5 doses, Starting on Mon09/13/22 at 0439, Until Discontinu ed, Routine, Hypertensi on SBP> 220 [facility] levETIRAcet am 750 mg tablet 09-13 00:00: 00 09-13 00:00 :00 No [id number] 750mg Take 1 tablet by mouth in the morning and 1 tablet in the evening. Do all this for 90 days. [facility] aspirin tablet 325 mg 09-12 23:15: 00 09-12 23:48 :00 No 325mg 325 mg, Oral, ONCE, 1 dose, On Mon09/12/22 at 1715, STAT [facility] NaCl 0.9% (NS) injection 5 mL 09-12 17:20: 55 Yes 5mL 5 mL, Slow IV Push, PRN - SEE INSTRUCTIO NS, Starting on Mon09/12/22 at 1120, Until Discontinu ed, 10 mL [facility] lisinopriL 10 mg tablet 2019-08 19:51: 39 Yes 10mg Take 10 mg by mouth daily. [facility] fluticasone /umeclidin/ vilanter (TRELEGY ELLIPTA INHALE) 2019-08 19:51: 39 Yes Inhale. [facility] pumpkin seed oil/saw palmetto (SAW PALMETTO-PU MPKIN SEED OIL ORAL) 2019-08 19:51: 39 Yes Take by mouth. [facility] lisinopriL 10 mg tablet 2019-08 19:51: 39 Yes 10mg Take 10 mg by mouth daily. [facility] fluticasone /umeclidin/ vilanter (TRELEGY ELLIPTA INHALE) 2019-08 19:51: 39 Yes Inhale. [facility] pumpkin seed oil/saw palmetto (SAW PALMETTO-PU MPKIN SEED OIL ORAL) 2019-08 19:51: 39 Yes Take by mouth. [facility] lisinopriL 10 mg tablet 2019-08 19:51: 39 Yes 10mg Take 10 mg by mouth daily. [facility] fluticasone /umeclidin/ vilanter (TRELEGY ELLIPTA INHALE) 2019-08 19:51: 39 Yes Inhale. [facility] pumpkin seed oil/saw palmetto (SAW PALMETTO-PU MPKIN SEED OIL ORAL) 2019-08 19:51: 39 Yes Take by mouth. [facility] amLODIPine (NORVASC) 10 mg tablet 2019-08 18:33: 54 Yes 5mg Take 5 mg by mouth daily. [facility] PREDNISONE, BULK, MISC 2019-08 18:33: 54 Yes 10mg 10 mg. [facility] amLODIPine (NORVASC) 10 mg tablet 2019-08 18:33: 54 Yes 5mg Take 5 mg by mouth daily. [facility] PREDNISONE, BULK, MISC 2019-08 18:33: 54 Yes 10mg 10 mg. [facility] amLODIPine (NORVASC) 10 mg tablet 2019-08 18:33: 54 Yes 5mg Take 5 mg by mouth daily. [facility] PREDNISONE, BULK, MISC 2019-08 18:33: 54 Yes 10mg 10 mg. [facility] lisinopriL 10 mg tablet 2019-08 13:51: 39 Yes 10mg Take 10 mg by mouth daily. [facility] fluticasone /umeclidin/ vilanter (TRELEGY ELLIPTA INHALE) 2019-08 13:51: 39 Yes Inhale. [facility] pumpkin seed oil/saw palmetto (SAW PALMETTO-PU MPKIN SEED OIL ORAL) 2019-08 13:51: 39 Yes Take by mouth. [facility] lisinopriL 10 mg tablet 2019-08 13:51: 39 Yes 10mg Take 10 mg by mouth daily. [facility] fluticasone /umeclidin/ vilanter (TRELEGY ELLIPTA INHALE) 2019-08 13:51: 39 Yes Inhale. [facility] pumpkin seed oil/saw palmetto (SAW PALMETTO-PU MPKIN SEED OIL ORAL) 2019-08 13:51: 39 Yes Take by mouth. [facility] amLODIPine (NORVASC) 10 mg tablet 2019-08 12:33: 54 Yes 5mg Take 5 mg by mouth daily. [facility] PREDNISONE, BULK, MISC 2019-08 12:33: 54 Yes 10mg 10 mg. [facility] amLODIPine (NORVASC) 10 mg tablet 2019-08 12:33: 54 Yes 5mg Take 5 mg by mouth daily. [facility] PREDNISONE, BULK, MISC 2019-08 12:33: 54 Yes 10mg 10 mg. [facility] methylPREDN ISolone (MEDROL, SUNDAR,) 4 mg tablets 2019-08 00:00: 00 Yes [id number] Take by mouth SEE-INSTRU CTIONS. follow package directions [facility] methylPREDN ISolone (MEDROL, SUNDAR,) 4 mg tablets 2019-08 00:00: 00 Yes [id number] Take by mouth SEE-INSTRU CTIONS. follow package directions [facility] methylPREDN ISolone (MEDROL, SUNDAR,) 4 mg tablets 2019-08 00:00: 00 Yes [id number] Take by mouth SEE-INSTRU CTIONS. follow package directions [facility] methylPREDN ISolone (MEDROL, SUNDAR,) 4 mg tablets 2019-08 00:00: 00 Yes [id number] Take by mouth SEE-INSTRU CTIONS. follow package directions [facility] methylPREDN ISolone (MEDROL, SUNDAR,) 4 mg tablets 2019-08 00:00: 00 Yes [id number] Take by mouth SEE-INSTRU CTIONS. follow package directions [facility] methylPREDN ISolone (MEDROL, SUNDAR,) 4 mg tablets 2019-08 00:00: 00 Yes [id number] Take by mouth SEE-INSTRU CTIONS. follow package directions [facility] methylPREDN ISolone (MEDROL, SUNDAR,) 4 mg tablets 2019-08 00:00: 00 Yes [id number] Take by mouth SEE-INSTRU CTIONS. follow package directions [facility] methylPREDN ISolone (MEDROL, SUNDAR,) 4 mg tablets 2019-08 00:00: 00 Yes [id number] Take by mouth SEE-INSTRU CTIONS. follow package directions [facility] methylPREDN ISolone (MEDROL, SUNDAR,) 4 mg tablets 2019-08 00:00: 00 Yes [id number] Take by mouth SEE-INSTRU CTIONS. follow package directions [facility] methylPREDN ISolone (MEDROL, SUNDAR,) 4 mg tablets 2019-08 00:00: 00 Yes [id number] Take by mouth SEE-INSTRU CTIONS. follow package directions [facility] methylPREDN ISolone (MEDROL, SUNDAR,) 4 mg tablets 2019-08 00:00: 00 Yes [id number] Take by mouth SEE-INSTRU CTIONS. follow package directions [facility] methylPREDN ISolone (MEDROL, SUNDAR,) 4 mg tablets 2019-08 00:00: 00 Yes [id number] Take by mouth SEE-INSTRU CTIONS. follow package directions [facility] methylPREDN ISolone (MEDROL, SUNDAR,) 4 mg tablets 2019-08 00:00: 00 Yes [id number] Take by mouth SEE-INSTRU CTIONS. follow package directions [facility] methylPREDN ISolone (MEDROL, SUNDAR,) 4 mg tablets 2019-08 00:00: 00 Yes [id number] Take by mouth SEE-INSTRU CTIONS. follow package directions [facility] methylPREDN ISolone (MEDROL, SUNDAR,) 4 mg tablets 2019-08 00:00: 00 Yes [id number] Take by mouth SEE-INSTRU CTIONS. follow package directions [facility] methylPREDN ISolone (MEDROL, SUNDAR,) 4 mg tablets 2019-08 00:00: 00 Yes [id number] Take by mouth SEE-INSTRU CTIONS. follow package directions [facility] traMADoL (ULTRAM) tablet 50 mg 04-11 02:42: 00 Yes 50mg 50 mg, Oral, Q6HPRN, Starting Mon04/10/20 at 2142, Until Discontinu ed, Routine, Pain (scale 4-6) [facility] cephALEXin (KEFLEX) capsule 500 mg 04-11 01:45: 00 04-11 00:40 :00 No 500mg 500 mg, Oral, ONCE, 1 dose, Mon04/10/20 at 2044, KRAIG
Re ason for Anti-Infec tive: Empiric Therapy for Suspected Infection< br>Empiric Therapy Site: Skin / Soft tissue
Duration of therapy: 72 hours [facility] tetanus-dip htheria toxoids (TDVAX) 2-2 Lf unit/0.5 mL injection 0.5 mL 04-11 01:45: 00 04-11 00:39 :00 No .5mL 0.5 mL, Intramuscu lar, ONCE, 1 dose, Mon04/10/20 at 2044, Routine [facility] cephALEXin (KEFLEX) 500 mg capsule 04-10 00:00: 00 04-18 04:59 :00 No [id number] 500mg Take 1 capsule by mouth 3 (three) times daily for 7 days. [facility] tamsulosin (FLOMAX) 0.4 mg 24 hr capsule 05-01 20:35: 24 Yes Take by mouth daily. [facility] NAPROXEN SODIUM (ALEVE ORAL) 05-01 20:35: 24 Yes Take by mouth. [facility] aspirin 81 mg chewable tablet 05-01 20:35: 24 Yes 81mg Take 81 mg by mouth daily. [facility] SAW PALMETTO ORAL 05-01 20:35: 24 Yes 900mg Take 900 mg by mouth. [facility] CALCIUM-MAG NESIUM-ZINC ORAL 05-01 20:35: 24 Yes Take by mouth. [facility] folic acid (FOLVITE) 800 mcg tablet 05-01 20:35: 24 Yes 800ug Take 800 mcg by mouth daily. [facility] Cranberry Extract (CRANBERRY) 450 mg Tab 05-01 20:35: 24 Yes 450mg Take 450 mg by mouth. [facility] pyridoxine, vitamin B6, (VITAMIN B-6) 200 mg tablet 05-01 20:35: 24 Yes 200mg Take 200 mg by mouth daily. [facility] ascorbic acid, vitamin C, (VITAMIN C) 500 mg tablet 05-01 20:35: 24 Yes 500mg Take 500 mg by mouth daily. [facility] DOCOSAHEXAN OIC ACID/EPA (FISH OIL ORAL) 05-01 20:35: 24 Yes 3000mg Take 3,000 mg by mouth. [facility] vitamin B-12 (VITAMIN B-12) 1,000 mcg tablet 05-01 20:35: 24 Yes 1000ug Take 1,000 mcg by mouth daily. [facility] ERGOCALCIFE ROL, VITAMIN D2, (VITAMIN D ORAL) 05-01 20:35: 24 Yes Take by mouth. [facility] PREDNISONE, BULK, MISC 05-01 20:35: 24 Yes 5mg 5 mg. [facility] rosuvastati n 40 mg tablet 05-01 20:35: 24 Yes 40mg Take 40 mg by mouth at bedtime. [facility] amLODIPine (NORVASC) 10 mg tablet 05-01 20:35: 24 Yes 10mg Take 10 mg by mouth daily. [facility] levothyroxi ne (SYNTHROID) 125 mcg tablet 05-01 20:35: 24 Yes 125ug Take 125 mcg by mouth every morning. [facility] tamsulosin (FLOMAX) 0.4 mg 24 hr capsule 05-01 20:35: 24 Yes Take by mouth daily. [facility] NAPROXEN SODIUM (ALEVE ORAL) 05-01 20:35: 24 Yes Take by mouth. [facility] aspirin 81 mg chewable tablet 05-01 20:35: 24 Yes 81mg Take 81 mg by mouth daily. [facility] SAW PALMETTO ORAL 05-01 20:35: 24 Yes 900mg Take 900 mg by mouth. [facility] CALCIUM-MAG NESIUM-ZINC ORAL 05-01 20:35: 24 Yes Take by mouth. [facility] folic acid (FOLVITE) 800 mcg tablet 05-01 20:35: 24 Yes 800ug Take 800 mcg by mouth daily. [facility] Cranberry Extract (CRANBERRY) 450 mg Tab 05-01 20:35: 24 Yes 450mg Take 450 mg by mouth. [facility] pyridoxine, vitamin B6, (VITAMIN B-6) 200 mg tablet 05-01 20:35: 24 Yes 200mg Take 200 mg by mouth daily. [facility] ascorbic acid, vitamin C, (VITAMIN C) 500 mg tablet 05-01 20:35: 24 Yes 500mg Take 500 mg by mouth daily. [facility] DOCOSAHEXAN OIC ACID/EPA (FISH OIL ORAL) 05-01 20:35: 24 Yes 3000mg Take 3,000 mg by mouth. [facility] vitamin B-12 (VITAMIN B-12) 1,000 mcg tablet 05-01 20:35: 24 Yes 1000ug Take 1,000 mcg by mouth daily. [facility] ERGOCALCIFE ROL, VITAMIN D2, (VITAMIN D ORAL) 05-01 20:35: 24 Yes Take by mouth. [facility] PREDNISONE, BULK, MISC 05-01 20:35: 24 Yes 5mg 5 mg. [facility] rosuvastati n 40 mg tablet 05-01 20:35: 24 Yes 40mg Take 40 mg by mouth at bedtime. [facility] amLODIPine (NORVASC) 10 mg tablet 05-01 20:35: 24 Yes 10mg Take 10 mg by mouth daily. [facility] levothyroxi ne (SYNTHROID) 125 mcg tablet 05-01 20:35: 24 Yes 125ug Take 125 mcg by mouth every morning. [facility] tamsulosin (FLOMAX) 0.4 mg 24 hr capsule 05-01 20:35: 24 Yes Take by mouth daily. [facility] NAPROXEN SODIUM (ALEVE ORAL) 05-01 20:35: 24 Yes Take by mouth. [facility] aspirin 81 mg chewable tablet 05-01 20:35: 24 Yes 81mg Take 81 mg by mouth daily. [facility] SAW PALMETTO ORAL 05-01 20:35: 24 Yes 900mg Take 900 mg by mouth. [facility] CALCIUM-MAG NESIUM-ZINC ORAL 05-01 20:35: 24 Yes Take by mouth. [facility] folic acid (FOLVITE) 800 mcg tablet 05-01 20:35: 24 Yes 800ug Take 800 mcg by mouth daily. [facility] Cranberry Extract (CRANBERRY) 450 mg Tab 05-01 20:35: 24 Yes 450mg Take 450 mg by mouth. [facility] pyridoxine, vitamin B6, (VITAMIN B-6) 200 mg tablet 05-01 20:35: 24 Yes 200mg Take 200 mg by mouth daily. [facility] ascorbic acid, vitamin C, (VITAMIN C) 500 mg tablet 05-01 20:35: 24 Yes 500mg Take 500 mg by mouth daily. [facility] DOCOSAHEXAN OIC ACID/EPA (FISH OIL ORAL) 05-01 20:35: 24 Yes 3000mg Take 3,000 mg by mouth. [facility] vitamin B-12 (VITAMIN B-12) 1,000 mcg tablet 05-01 20:35: 24 Yes 1000ug Take 1,000 mcg by mouth daily. [facility] ERGOCALCIFE ROL, VITAMIN D2, (VITAMIN D ORAL) 05-01 20:35: 24 Yes Take by mouth. [facility] PREDNISONE, BULK, MISC 05-01 20:35: 24 Yes 5mg 5 mg. [facility] rosuvastati n 40 mg tablet 05-01 20:35: 24 Yes 40mg Take 40 mg by mouth at bedtime. [facility] amLODIPine (NORVASC) 10 mg tablet 05-01 20:35: 24 Yes 10mg Take 10 mg by mouth daily. [facility] levothyroxi ne (SYNTHROID) 125 mcg tablet 05-01 20:35: 24 Yes 125ug Take 125 mcg by mouth every morning. [facility] tamsulosin (FLOMAX) 0.4 mg 24 hr capsule 05-01 20:35: 24 Yes Take by mouth daily. [facility] NAPROXEN SODIUM (ALEVE ORAL) 05-01 20:35: 24 Yes Take by mouth. [facility] aspirin 81 mg chewable tablet 05-01 20:35: 24 Yes 81mg Take 81 mg by mouth daily. [facility] SAW PALMETTO ORAL 05-01 20:35: 24 Yes 900mg Take 900 mg by mouth. [facility] CALCIUM-MAG NESIUM-ZINC ORAL 05-01 20:35: 24 Yes Take by mouth. [facility] folic acid (FOLVITE) 800 mcg tablet 05-01 20:35: 24 Yes 800ug Take 800 mcg by mouth daily. [facility] Cranberry Extract (CRANBERRY) 450 mg Tab 05-01 20:35: 24 Yes 450mg Take 450 mg by mouth. [facility] pyridoxine, vitamin B6, (VITAMIN B-6) 200 mg tablet 05-01 20:35: 24 Yes 200mg Take 200 mg by mouth daily. [facility] ascorbic acid, vitamin C, (VITAMIN C) 500 mg tablet 05-01 20:35: 24 Yes 500mg Take 500 mg by mouth daily. [facility] DOCOSAHEXAN OIC ACID/EPA (FISH OIL ORAL) 05-01 20:35: 24 Yes 3000mg Take 3,000 mg by mouth. [facility] vitamin B-12 (VITAMIN B-12) 1,000 mcg tablet 05-01 20:35: 24 Yes 1000ug Take 1,000 mcg by mouth daily. [facility] ERGOCALCIFE ROL, VITAMIN D2, (VITAMIN D ORAL) 05-01 20:35: 24 Yes Take by mouth. [facility] PREDNISONE, BULK, MISC 05-01 20:35: 24 Yes 5mg 5 mg. [facility] rosuvastati n 40 mg tablet 05-01 20:35: 24 Yes 40mg Take 40 mg by mouth at bedtime. [facility] amLODIPine (NORVASC) 10 mg tablet 05-01 20:35: 24 Yes 10mg Take 10 mg by mouth daily. [facility] levothyroxi ne (SYNTHROID) 125 mcg tablet 05-01 20:35: 24 Yes 125ug Take 125 mcg by mouth every morning. [facility] tamsulosin (FLOMAX) 0.4 mg 24 hr capsule 05-01 20:35: 24 Yes Take by mouth daily. [facility] NAPROXEN SODIUM (ALEVE ORAL) 05-01 20:35: 24 Yes Take by mouth. [facility] aspirin 81 mg chewable tablet 05-01 20:35: 24 Yes 81mg Take 81 mg by mouth daily. [facility] SAW PALMETTO ORAL 05-01 20:35: 24 Yes 900mg Take 900 mg by mouth. [facility] CALCIUM-MAG NESIUM-ZINC ORAL 05-01 20:35: 24 Yes Take by mouth. [facility] folic acid (FOLVITE) 800 mcg tablet 05-01 20:35: 24 Yes 800ug Take 800 mcg by mouth daily. [facility] Cranberry Extract (CRANBERRY) 450 mg Tab 05-01 20:35: 24 Yes 450mg Take 450 mg by mouth. [facility] pyridoxine, vitamin B6, (VITAMIN B-6) 200 mg tablet 05-01 20:35: 24 Yes 200mg Take 200 mg by mouth daily. [facility] ascorbic acid, vitamin C, (VITAMIN C) 500 mg tablet 05-01 20:35: 24 Yes 500mg Take 500 mg by mouth daily. [facility] DOCOSAHEXAN OIC ACID/EPA (FISH OIL ORAL) 05-01 20:35: 24 Yes 3000mg Take 3,000 mg by mouth. [facility] vitamin B-12 (VITAMIN B-12) 1,000 mcg tablet 05-01 20:35: 24 Yes 1000ug Take 1,000 mcg by mouth daily. [facility] ERGOCALCIFE ROL, VITAMIN D2, (VITAMIN D ORAL) 05-01 20:35: 24 Yes Take by mouth. [facility] PREDNISONE, BULK, MISC 05-01 20:35: 24 Yes 5mg 5 mg. [facility] rosuvastati n 40 mg tablet 05-01 20:35: 24 Yes 40mg Take 40 mg by mouth at bedtime. [facility] amLODIPine (NORVASC) 10 mg tablet 05-01 20:35: 24 Yes 10mg Take 10 mg by mouth daily. [facility] levothyroxi ne (SYNTHROID) 125 mcg tablet 05-01 20:35: 24 Yes 125ug Take 125 mcg by mouth every morning. [facility] tamsulosin (FLOMAX) 0.4 mg 24 hr capsule 05-01 20:35: 24 Yes Take by mouth daily. [facility] NAPROXEN SODIUM (ALEVE ORAL) 05-01 20:35: 24 Yes Take by mouth. [facility] aspirin 81 mg chewable tablet 05-01 20:35: 24 Yes 81mg Take 81 mg by mouth daily. [facility] SAW PALMETTO ORAL 05-01 20:35: 24 Yes 900mg Take 900 mg by mouth. [facility] CALCIUM-MAG NESIUM-ZINC ORAL 05-01 20:35: 24 Yes Take by mouth. [facility] folic acid (FOLVITE) 800 mcg tablet 05-01 20:35: 24 Yes 800ug Take 800 mcg by mouth daily. [facility] Cranberry Extract (CRANBERRY) 450 mg Tab 05-01 20:35: 24 Yes 450mg Take 450 mg by mouth. [facility] pyridoxine, vitamin B6, (VITAMIN B-6) 200 mg tablet 05-01 20:35: 24 Yes 200mg Take 200 mg by mouth daily. [facility] ascorbic acid, vitamin C, (VITAMIN C) 500 mg tablet 05-01 20:35: 24 Yes 500mg Take 500 mg by mouth daily. [facility] DOCOSAHEXAN OIC ACID/EPA (FISH OIL ORAL) 05-01 20:35: 24 Yes 3000mg Take 3,000 mg by mouth. [facility] vitamin B-12 (VITAMIN B-12) 1,000 mcg tablet 05-01 20:35: 24 Yes 1000ug Take 1,000 mcg by mouth daily. [facility] ERGOCALCIFE ROL, VITAMIN D2, (VITAMIN D ORAL) 05-01 20:35: 24 Yes Take by mouth. [facility] PREDNISONE, BULK, MISC 05-01 20:35: 24 Yes 5mg 5 mg. [facility] rosuvastati n 40 mg tablet 05-01 20:35: 24 Yes 40mg Take 40 mg by mouth at bedtime. [facility] amLODIPine (NORVASC) 10 mg tablet 05-01 20:35: 24 Yes 10mg Take 10 mg by mouth daily. [facility] amLODIPine (NORVASC) 10 mg tablet 05-01 20:35: 24 Yes 10mg Take 10 mg by mouth daily. [facility] levothyroxi ne (SYNTHROID) 125 mcg tablet 05-01 20:35: 24 Yes 125ug Take 125 mcg by mouth every morning. [facility] tamsulosin (FLOMAX) 0.4 mg 24 hr capsule 05-01 20:35: 24 Yes Take by mouth daily. [facility] NAPROXEN SODIUM (ALEVE ORAL) 05-01 20:35: 24 Yes Take by mouth. [facility] aspirin 81 mg chewable tablet 05-01 20:35: 24 Yes 81mg Take 81 mg by mouth daily. [facility] SAW PALMETTO ORAL 05-01 20:35: 24 Yes 900mg Take 900 mg by mouth. [facility] CALCIUM-MAG NESIUM-ZINC ORAL 05-01 20:35: 24 Yes Take by mouth. [facility] levothyroxi ne (SYNTHROID) 125 mcg tablet 05-01 20:35: 24 Yes 125ug Take 125 mcg by mouth every morning. [facility] folic acid (FOLVITE) 800 mcg tablet 05-01 20:35: 24 Yes 800ug Take 800 mcg by mouth daily. [facility] Cranberry Extract (CRANBERRY) 450 mg Tab 05-01 20:35: 24 Yes 450mg Take 450 mg by mouth. [facility] pyridoxine, vitamin B6, (VITAMIN B-6) 200 mg tablet 05-01 20:35: 24 Yes 200mg Take 200 mg by mouth daily. [facility] ascorbic acid, vitamin C, (VITAMIN C) 500 mg tablet 05-01 20:35: 24 Yes 500mg Take 500 mg by mouth daily. [facility] DOCOSAHEXAN OIC ACID/EPA (FISH OIL ORAL) 05-01 20:35: 24 Yes 3000mg Take 3,000 mg by mouth. [facility] vitamin B-12 (VITAMIN B-12) 1,000 mcg tablet 05-01 20:35: 24 Yes 1000ug Take 1,000 mcg by mouth daily. [facility] ERGOCALCIFE ROL, VITAMIN D2, (VITAMIN D ORAL) 05-01 20:35: 24 Yes Take by mouth. [facility] PREDNISONE, BULK, MISC 05-01 20:35: 24 Yes 5mg 5 mg. [facility] rosuvastati n 40 mg tablet 05-01 20:35: 24 Yes 40mg Take 40 mg by mouth at bedtime. [facility] tamsulosin (FLOMAX) 0.4 mg 24 hr capsule 05-01 20:35: 24 Yes Take by mouth daily. [facility] amLODIPine (NORVASC) 10 mg tablet 05-01 20:35: 24 Yes 10mg Take 10 mg by mouth daily. [facility] levothyroxi ne (SYNTHROID) 125 mcg tablet 05-01 20:35: 24 Yes 125ug Take 125 mcg by mouth every morning. [facility] tamsulosin (FLOMAX) 0.4 mg 24 hr capsule 05-01 20:35: 24 Yes Take by mouth daily. [facility] NAPROXEN SODIUM (ALEVE ORAL) 05-01 20:35: 24 Yes Take by mouth. [facility] aspirin 81 mg chewable tablet 05-01 20:35: 24 Yes 81mg Take 81 mg by mouth daily. [facility] SAW PALMETTO ORAL 05-01 20:35: 24 Yes 900mg Take 900 mg by mouth. [facility] NAPROXEN SODIUM (ALEVE ORAL) 05-01 20:35: 24 Yes Take by mouth. [facility] CALCIUM-MAG NESIUM-ZINC ORAL 05-01 20:35: 24 Yes Take by mouth. [facility] folic acid (FOLVITE) 800 mcg tablet 05-01 20:35: 24 Yes 800ug Take 800 mcg by mouth daily. [facility] Cranberry Extract (CRANBERRY) 450 mg Tab 05-01 20:35: 24 Yes 450mg Take 450 mg by mouth. [facility] pyridoxine, vitamin B6, (VITAMIN B-6) 200 mg tablet 05-01 20:35: 24 Yes 200mg Take 200 mg by mouth daily. [facility] ascorbic acid, vitamin C, (VITAMIN C) 500 mg tablet 05-01 20:35: 24 Yes 500mg Take 500 mg by mouth daily. [facility] DOCOSAHEXAN OIC ACID/EPA (FISH OIL ORAL) 05-01 20:35: 24 Yes 3000mg Take 3,000 mg by mouth. [facility] vitamin B-12 (VITAMIN B-12) 1,000 mcg tablet 05-01 20:35: 24 Yes 1000ug Take 1,000 mcg by mouth daily. [facility] ERGOCALCIFE ROL, VITAMIN D2, (VITAMIN D ORAL) 05-01 20:35: 24 Yes Take by mouth. [facility] PREDNISONE, BULK, MISC 05-01 20:35: 24 Yes 5mg 5 mg. [facility] aspirin 81 mg chewable tablet 05-01 20:35: 24 Yes 81mg Take 81 mg by mouth daily. [facility] rosuvastati n 40 mg tablet 05-01 20:35: 24 Yes 40mg Take 40 mg by mouth at bedtime. [facility] SAW PALMETTO ORAL 05-01 20:35: 24 Yes 900mg Take 900 mg by mouth. [facility] levothyroxi ne (SYNTHROID) 125 mcg tablet 05-01 20:35: 24 Yes 125ug Take 125 mcg by mouth every morning. [facility] tamsulosin (FLOMAX) 0.4 mg 24 hr capsule 05-01 20:35: 24 Yes Take by mouth daily. [facility] NAPROXEN SODIUM (ALEVE ORAL) 05-01 20:35: 24 Yes Take by mouth. [facility] aspirin 81 mg chewable tablet 05-01 20:35: 24 Yes 81mg Take 81 mg by mouth daily. [facility] SAW PALMETTO ORAL 05-01 20:35: 24 Yes 900mg Take 900 mg by mouth. [facility] CALCIUM-MAG NESIUM-ZINC ORAL 05-01 20:35: 24 Yes Take by mouth. [facility] folic acid (FOLVITE) 800 mcg tablet 05-01 20:35: 24 Yes 800ug Take 800 mcg by mouth daily. [facility] Cranberry Extract (CRANBERRY) 450 mg Tab 05-01 20:35: 24 Yes 450mg Take 450 mg by mouth. [facility] pyridoxine, vitamin B6, (VITAMIN B-6) 200 mg tablet 05-01 20:35: 24 Yes 200mg Take 200 mg by mouth daily. [facility] CALCIUM-MAG NESIUM-ZINC ORAL 05-01 20:35: 24 Yes Take by mouth. [facility] ascorbic acid, vitamin C, (VITAMIN C) 500 mg tablet 05-01 20:35: 24 Yes 500mg Take 500 mg by mouth daily. [facility] DOCOSAHEXAN OIC ACID/EPA (FISH OIL ORAL) 05-01 20:35: 24 Yes 3000mg Take 3,000 mg by mouth. [facility] vitamin B-12 (VITAMIN B-12) 1,000 mcg tablet 05-01 20:35: 24 Yes 1000ug Take 1,000 mcg by mouth daily. [facility] ERGOCALCIFE ROL, VITAMIN D2, (VITAMIN D ORAL) 05-01 20:35: 24 Yes Take by mouth. [facility] rosuvastati n 40 mg tablet 05-01 20:35: 24 Yes 40mg Take 40 mg by mouth at bedtime. [facility] folic acid (FOLVITE) 800 mcg tablet 05-01 20:35: 24 Yes 800ug Take 800 mcg by mouth daily. [facility] Cranberry Extract (CRANBERRY) 450 mg Tab 05-01 20:35: 24 Yes 450mg Take 450 mg by mouth. [facility] pyridoxine, vitamin B6, (VITAMIN B-6) 200 mg tablet 05-01 20:35: 24 Yes 200mg Take 200 mg by mouth daily. [facility] ascorbic acid, vitamin C, (VITAMIN C) 500 mg tablet 05-01 20:35: 24 Yes 500mg Take 500 mg by mouth daily. [facility] levothyroxi ne (SYNTHROID) 125 mcg tablet 05-01 20:35: 24 Yes 125ug Take 125 mcg by mouth every morning. [facility] tamsulosin (FLOMAX) 0.4 mg 24 hr capsule 05-01 20:35: 24 Yes Take by mouth daily. [facility] NAPROXEN SODIUM (ALEVE ORAL) 05-01 20:35: 24 Yes Take by mouth. [facility] aspirin 81 mg chewable tablet 05-01 20:35: 24 Yes 81mg Take 81 mg by mouth daily. [facility] SAW PALMETTO ORAL 05-01 20:35: 24 Yes 900mg Take 900 mg by mouth. [facility] CALCIUM-MAG NESIUM-ZINC ORAL 05-01 20:35: 24 Yes Take by mouth. [facility] folic acid (FOLVITE) 800 mcg tablet 05-01 20:35: 24 Yes 800ug Take 800 mcg by mouth daily. [facility] DOCOSAHEXAN OIC ACID/EPA (FISH OIL ORAL) 05-01 20:35: 24 Yes 3000mg Take 3,000 mg by mouth. [facility] Cranberry Extract (CRANBERRY) 450 mg Tab 05-01 20:35: 24 Yes 450mg Take 450 mg by mouth. [facility] pyridoxine, vitamin B6, (VITAMIN B-6) 200 mg tablet 05-01 20:35: 24 Yes 200mg Take 200 mg by mouth daily. [facility] ascorbic acid, vitamin C, (VITAMIN C) 500 mg tablet 05-01 20:35: 24 Yes 500mg Take 500 mg by mouth daily. [facility] DOCOSAHEXAN OIC ACID/EPA (FISH OIL ORAL) 05-01 20:35: 24 Yes 3000mg Take 3,000 mg by mouth. [facility] vitamin B-12 (VITAMIN B-12) 1,000 mcg tablet 05-01 20:35: 24 Yes 1000ug Take 1,000 mcg by mouth daily. [facility] ERGOCALCIFE ROL, VITAMIN D2, (VITAMIN D ORAL) 05-01 20:35: 24 Yes Take by mouth. [facility] rosuvastati n 40 mg tablet 05-01 20:35: 24 Yes 40mg Take 40 mg by mouth at bedtime. [facility] vitamin B-12 (VITAMIN B-12) 1,000 mcg tablet 05-01 20:35: 24 Yes 1000ug Take 1,000 mcg by mouth daily. [facility] ERGOCALCIFE ROL, VITAMIN D2, (VITAMIN D ORAL) 05-01 20:35: 24 Yes Take by mouth. [facility] levothyroxi ne (SYNTHROID) 125 mcg tablet 05-01 20:35: 24 Yes 125ug Take 125 mcg by mouth every morning. [facility] tamsulosin (FLOMAX) 0.4 mg 24 hr capsule 05-01 20:35: 24 Yes Take by mouth daily. [facility] NAPROXEN SODIUM (ALEVE ORAL) 05-01 20:35: 24 Yes Take by mouth. [facility] aspirin 81 mg chewable tablet 05-01 20:35: 24 Yes 81mg Take 81 mg by mouth daily. [facility] SAW PALMETTO ORAL 05-01 20:35: 24 Yes 900mg Take 900 mg by mouth. [facility] CALCIUM-MAG NESIUM-ZINC ORAL 05-01 20:35: 24 Yes Take by mouth. [facility] folic acid (FOLVITE) 800 mcg tablet 05-01 20:35: 24 Yes 800ug Take 800 mcg by mouth daily. [facility] Cranberry Extract (CRANBERRY) 450 mg Tab 05-01 20:35: 24 Yes 450mg Take 450 mg by mouth. [facility] pyridoxine, vitamin B6, (VITAMIN B-6) 200 mg tablet 05-01 20:35: 24 Yes 200mg Take 200 mg by mouth daily. [facility] ascorbic acid, vitamin C, (VITAMIN C) 500 mg tablet 05-01 20:35: 24 Yes 500mg Take 500 mg by mouth daily. [facility] DOCOSAHEXAN OIC ACID/EPA (FISH OIL ORAL) 05-01 20:35: 24 Yes 3000mg Take 3,000 mg by mouth. [facility] vitamin B-12 (VITAMIN B-12) 1,000 mcg tablet 05-01 20:35: 24 Yes 1000ug Take 1,000 mcg by mouth daily. [facility] ERGOCALCIFE ROL, VITAMIN D2, (VITAMIN D ORAL) 05-01 20:35: 24 Yes Take by mouth. [facility] rosuvastati n 40 mg tablet 05-01 20:35: 24 Yes 40mg Take 40 mg by mouth at bedtime. [facility] PREDNISONE, BULK, MISC 05-01 20:35: 24 Yes 5mg 5 mg. [facility] rosuvastati n 40 mg tablet 05-01 20:35: 24 Yes 40mg Take 40 mg by mouth at bedtime. [facility] amLODIPine (NORVASC) 10 mg tablet 05-01 20:35: 24 Yes 10mg Take 10 mg by mouth daily. [facility] levothyroxi ne (SYNTHROID) 125 mcg tablet 05-01 20:35: 24 Yes 125ug Take 125 mcg by mouth every morning. [facility] lisinopril (PRINIVIL,Z ESTRIL) 40 mg tablet 05-01 18:07: 55 05-01 00:00 :00 No 40mg Take 40 mg by mouth daily. [facility] levothyroxi ne (SYNTHROID) 125 mcg tablet 05-01 15:35: 24 Yes 125ug Take 125 mcg by mouth every morning. [facility] tamsulosin (FLOMAX) 0.4 mg 24 hr capsule 05-01 15:35: 24 Yes Take by mouth daily. [facility] NAPROXEN SODIUM (ALEVE ORAL) 05-01 15:35: 24 Yes Take by mouth. [facility] aspirin 81 mg chewable tablet 05-01 15:35: 24 Yes 81mg Take 81 mg by mouth daily. [facility] SAW PALMETTO ORAL 05-01 15:35: 24 Yes 900mg Take 900 mg by mouth. [facility] CALCIUM-MAG NESIUM-ZINC ORAL 05-01 15:35: 24 Yes Take by mouth. [facility] folic acid (FOLVITE) 800 mcg tablet 05-01 15:35: 24 Yes 800ug Take 800 mcg by mouth daily. [facility] Cranberry Extract (CRANBERRY) 450 mg Tab 05-01 15:35: 24 Yes 450mg Take 450 mg by mouth. [facility] pyridoxine, vitamin B6, (VITAMIN B-6) 200 mg tablet 05-01 15:35: 24 Yes 200mg Take 200 mg by mouth daily. [facility] ascorbic acid, vitamin C, (VITAMIN C) 500 mg tablet 05-01 15:35: 24 Yes 500mg Take 500 mg by mouth daily. [facility] DOCOSAHEXAN OIC ACID/EPA (FISH OIL ORAL) 05-01 15:35: 24 Yes 3000mg Take 3,000 mg by mouth. [facility] vitamin B-12 (VITAMIN B-12) 1,000 mcg tablet 05-01 15:35: 24 Yes 1000ug Take 1,000 mcg by mouth daily. [facility] ERGOCALCIFE ROL, VITAMIN D2, (VITAMIN D ORAL) 05-01 15:35: 24 Yes Take by mouth. [facility] rosuvastati n 40 mg tablet 05-01 15:35: 24 Yes 40mg Take 40 mg by mouth at bedtime. [facility] levothyroxi ne (SYNTHROID) 125 mcg tablet 05-01 15:35: 24 Yes 125ug Take 125 mcg by mouth every morning. [facility] tamsulosin (FLOMAX) 0.4 mg 24 hr capsule 05-01 15:35: 24 Yes Take by mouth daily. [facility] NAPROXEN SODIUM (ALEVE ORAL) 05-01 15:35: 24 Yes Take by mouth. [facility] aspirin 81 mg chewable tablet 05-01 15:35: 24 Yes 81mg Take 81 mg by mouth daily. [facility] SAW PALMETTO ORAL 05-01 15:35: 24 Yes 900mg Take 900 mg by mouth. [facility] CALCIUM-MAG NESIUM-ZINC ORAL 05-01 15:35: 24 Yes Take by mouth. [facility] folic acid (FOLVITE) 800 mcg tablet 05-01 15:35: 24 Yes 800ug Take 800 mcg by mouth daily. [facility] Cranberry Extract (CRANBERRY) 450 mg Tab 05-01 15:35: 24 Yes 450mg Take 450 mg by mouth. [facility] pyridoxine, vitamin B6, (VITAMIN B-6) 200 mg tablet 05-01 15:35: 24 Yes 200mg Take 200 mg by mouth daily. [facility] ascorbic acid, vitamin C, (VITAMIN C) 500 mg tablet 05-01 15:35: 24 Yes 500mg Take 500 mg by mouth daily. [facility] DOCOSAHEXAN OIC ACID/EPA (FISH OIL ORAL) 05-01 15:35: 24 Yes 3000mg Take 3,000 mg by mouth. [facility] vitamin B-12 (VITAMIN B-12) 1,000 mcg tablet 05-01 15:35: 24 Yes 1000ug Take 1,000 mcg by mouth daily. [facility] ERGOCALCIFE ROL, VITAMIN D2, (VITAMIN D ORAL) 05-01 15:35: 24 Yes Take by mouth. [facility] rosuvastati n 40 mg tablet 05-01 15:35: 24 Yes 40mg Take 40 mg by mouth at bedtime. [facility] gabapentin 100 mg capsule 05-01 00:00: 00 Yes [id number] 200mg Take 2 capsules by mouth 3 (three) times daily. [facility] gabapentin 100 mg capsule 05-01 00:00: 00 Yes [id number] 200mg Take 2 capsules by mouth 3 (three) times daily. [facility] gabapentin 100 mg capsule 05-01 00:00: 00 Yes [id number] 200mg Take 2 capsules by mouth 3 (three) times daily. [facility] gabapentin 100 mg capsule 05-01 00:00: 00 Yes [id number] 200mg Take 2 capsules by mouth 3 (three) times daily. [facility] gabapentin 100 mg capsule 05-01 00:00: 00 Yes [id number] 200mg Take 2 capsules by mouth 3 (three) times daily. [facility] gabapentin 100 mg capsule 05-01 00:00: 00 Yes [id number] 200mg Take 2 capsules by mouth 3 (three) times daily. [facility] gabapentin 100 mg capsule 05-01 00:00: 00 Yes [id number] 200mg Take 2 capsules by mouth 3 (three) times daily. [facility] gabapentin 100 mg capsule 05-01 00:00: 00 Yes [id number] 200mg Take 2 capsules by mouth 3 (three) times daily. [facility] gabapentin 100 mg capsule 05-01 00:00: 00 Yes [id number] 200mg Take 2 capsules by mouth 3 (three) times daily. [facility] gabapentin 100 mg capsule 05-01 00:00: 00 Yes [id number] 200mg Take 2 capsules by mouth 3 (three) times daily. [facility] gabapentin 100 mg capsule 05-01 00:00: 00 Yes [id number] 200mg Take 2 capsules by mouth 3 (three) times daily. [facility] gabapentin 100 mg capsule 05-01 00:00: 00 Yes [id number] 200mg Take 2 capsules by mouth 3 (three) times daily. [facility] gabapentin 100 mg capsule 05-01 00:00: 00 Yes [id number] 200mg Take 2 capsules by mouth 3 (three) times daily. [facility] gabapentin 100 mg capsule 05-01 00:00: 00 Yes [id number] 200mg Take 2 capsules by mouth 3 (three) times daily. [facility] gabapentin 100 mg capsule 05-01 00:00: 00 Yes [id number] 200mg Take 2 capsules by mouth 3 (three) times daily. [facility] gabapentin 100 mg capsule 05-01 00:00: 00 Yes [id number] 200mg Take 2 capsules by mouth 3 (three) times daily. [facility] gabapentin 100 mg capsule 05-01 00:00: 00 Yes [id number] 200mg Take 2 capsules by mouth 3 (three) times daily. [facility] gabapentin 100 mg capsule 05-01 00:00: 00 Yes [id number] 200mg Take 2 capsules by mouth 3 (three) times daily. [facility] gabapentin 100 mg capsule 05-01 00:00: 00 Yes [id number] 200mg Take 2 capsules by mouth 3 (three) times daily. [facility] gabapentin 100 mg capsule 05-01 00:00: 00 Yes [id number] 200mg Take 2 capsules by mouth 3 (three) times daily. [facility] gabapentin 100 mg capsule 05-01 00:00: 00 Yes [id number] 200mg Take 2 capsules by mouth 3 (three) times daily. [facility] gabapentin 100 mg capsule 05-01 00:00: 00 Yes [id number] 200mg Take 2 capsules by mouth 3 (three) times daily. [facility] gabapentin 100 mg capsule 05-01 00:00: 00 Yes [id number] 200mg Take 2 capsules by mouth 3 (three) times daily. [facility] gabapentin 100 mg capsule 05-01 00:00: 00 Yes [id number] 200mg Take 2 capsules by mouth 3 (three) times daily. [facility] gabapentin 100 mg capsule 05-01 00:00: 00 Yes [id number] 200mg Take 2 capsules by mouth 3 (three) times daily. [facility] gabapentin 100 mg capsule 05-01 00:00: 00 Yes [id number] 200mg Take 2 capsules by mouth 3 (three) times daily. [facility] gabapentin 100 mg capsule 05-01 00:00: 00 Yes [id number] 200mg Take 2 capsules by mouth 3 (three) times daily. [facility] gabapentin 100 mg capsule 05-01 00:00: 00 Yes [id number] 200mg Take 2 capsules by mouth 3 (three) times daily. [facility] tamsulosin (FLOMAX) capsule 0.4 mg 04-30 14:00: 00 Yes .4mg 0.4 mg, Oral, DAILY, First dose on Mon04/30/19 at 0900, Until Discontinu ed, [facility] mg 04-30 14:00: 00 Yes 81mg 81 mg, Oral, DAILY, First dose on Mon04/30/19 at 0900, Until Discontinu ed, [facility] amLODIPine (NORVASC) tablet 10 mg 04-30 14:00: 00 Yes 10mg 10 mg, Oral, DAILY, First dose on Mon04/30/19 at 0900, Until Discontinu ed, [facility] lisinopril (PRINIVIL,Z ESTRIL) tablet 40 mg 04-30 14:00: 00 04-30 14:10 :43 No 40mg 40 mg, Oral, DAILY, First dose on Mon04/30/19 at 0900, Until Discontinu ed [facility] levothyroxi ne (SYNTHROID) tablet 125 mcg 04-30 11:00: 00 Yes 125ug 125 mcg, Oral, QAM-0600, First dose on Mon04/30/19 at 0600, Until Discontinu ed, [facility] gabap[facility] (NEURONTIN) capsule 200 mg 04-30 03:30: 00 Yes 200mg 200 mg, Oral, TID, First dose on Mon04/29/19 at 2230, Until Discontinu ed, Routine [facility] rosuvastati n (CRESTOR) tablet 40 mg 04-30 02:00: 00 Yes 40mg 40 mg, Oral, QHS, First dose on Mon04/29/19 at 2100, Until Discontinu ed, Routine [facility] atorvastati n (LIPITOR) 80 mg tablet 04-30 01:30: 11 04-29 00:00 :00 No 80mg Take 80 mg by mouth at bedtime. [facility] HYDROcodone -acetaminop hen (NORCO 5) 5-325 mg tablet 1 tablet 04-30 01:22: 54 05-02 01:21 :54 No 1{tbl} 1 tablet, Oral, Q6HPRN, Starting Mon04/29/19 at 2021, Until Mon05/01/19 at 2020, Routine, Pain (scale 4-6) [facility] acetaminoph en (TYLENOL) tablet 650 mg 04-30 01:22: 50 Yes 650mg 650 mg, Oral, Q6HPRN, Starting Mon04/29/19 at 2021, Until Discontinu ed, Routine, Pain (scale 1-3) [facility] NaCl 0.9% (NS) injection 5 mL 04-29 17:41: 06 Yes 5mL 5 mL, Slow IV Push, PRN - SEE INSTRUCTIO NS, Starting Mon04/29/19 at 1241, Until Discontinu ed, 10 mL [facility] cyclobenzap rine (FLEXERIL) 5 mg tablet 02-12 00:00: 00 Yes 5mg Take 1 tablet by mouth 3 (three) times daily. [facility] acetaminoph en-codeine (TYLENOL #3) 300-30 mg tablet 02-12 00:00: 00 Yes 1{tbl} Take 1 tablet by mouth every 4 (four) hours as needed for Pain (scale 7-10). [facility] cyclobenzap rine (FLEXERIL) 5 mg tablet 02-12 00:00: 00 Yes 5mg Take 1 tablet by mouth 3 (three) times daily. [facility] acetaminoph en-codeine (TYLENOL #3) 300-30 mg tablet 02-12 00:00: 00 Yes 1{tbl} Take 1 tablet by mouth every 4 (four) hours as needed for Pain (scale 7-10). [facility] cyclobenzap rine (FLEXERIL) 5 mg tablet 02-12 00:00: 00 Yes 5mg Take 1 tablet by mouth 3 (three) times daily. [facility] acetaminoph en-codeine (TYLENOL #3) 300-30 mg tablet 02-12 00:00: 00 Yes 1{tbl} Take 1 tablet by mouth every 4 (four) hours as needed for Pain (scale 7-10). [facility] acetaminoph en-codeine (TYLENOL #3) 300-30 mg tablet 02-12 00:00: 00 Yes 1{tbl} Take 1 tablet by mouth every 4 (four) hours as needed for Pain (scale 7-10). [facility] acetaminoph en-codeine (TYLENOL #3) 300-30 mg tablet 02-12 00:00: 00 Yes 1{tbl} Take 1 tablet by mouth every 4 (four) hours as needed for Pain (scale 7-10). [facility] acetaminoph en-codeine (TYLENOL #3) 300-30 mg tablet 02-12 00:00: 00 Yes 1{tbl} Take 1 tablet by mouth every 4 (four) hours as needed for Pain (scale 7-10). [facility] acetaminoph en-codeine (TYLENOL #3) 300-30 mg tablet 02-12 00:00: 00 Yes 1{tbl} Take 1 tablet by mouth every 4 (four) hours as needed for Pain (scale 7-10). [facility] acetaminoph en-codeine (TYLENOL #3) 300-30 mg tablet 02-12 00:00: 00 Yes 1{tbl} Take 1 tablet by mouth every 4 (four) hours as needed for Pain (scale 7-10). [facility] acetaminoph en-codeine (TYLENOL #3) 300-30 mg tablet 02-12 00:00: 00 Yes 1{tbl} Take 1 tablet by mouth every 4 (four) hours as needed for Pain (scale 7-10). [facility] cyclobenzap rine (FLEXERIL) 5 mg tablet 02-12 00:00: 00 Yes 5mg Take 1 tablet by mouth 3 (three) times daily. [facility] acetaminoph en-codeine (TYLENOL #3) 300-30 mg tablet 02-12 00:00: 00 Yes 1{tbl} Take 1 tablet by mouth every 4 (four) hours as needed for Pain (scale 7-10). [facility] acetaminoph en-codeine (TYLENOL #3) 300-30 mg tablet 02-12 00:00: 00 Yes 1{tbl} Take 1 tablet by mouth every 4 (four) hours as needed for Pain (scale 7-10). [facility] acetaminoph en-codeine (TYLENOL #3) 300-30 mg tablet 02-12 00:00: 00 Yes 1{tbl} Take 1 tablet by mouth every 4 (four) hours as needed for Pain (scale 7-10). [facility] acetaminoph en-codeine (TYLENOL #3) 300-30 mg tablet 02-12 00:00: 00 Yes 1{tbl} Take 1 tablet by mouth every 4 (four) hours as needed for Pain (scale 7-10). [facility] [facility] acetaminoph en-codeine (TYLENOL #3) 300-30 mg tablet 02-12 00:00: 00 Yes 1{tbl} Take 1 tablet by mouth every 4 (four) hours as needed for Pain (scale 7-10). [facility] acetaminoph en-codeine (TYLENOL #3) 300-30 mg tablet 02-12 00:00: 00 Yes 1{tbl} Take 1 tablet by mouth every 4 (four) hours as needed for Pain (scale 7-10). [facility] acetaminoph en-codeine (TYLENOL #3) 300-30 mg tablet 02-12 00:00: 00 Yes 1{tbl} Take 1 tablet by mouth every 4 (four) hours as needed for Pain (scale 7-10). [facility] acetaminoph en-codeine (TYLENOL #3) 300-30 mg tablet 02-12 00:00: 00 Yes 1{tbl} Take 1 tablet by mouth every 4 (four) hours as needed for Pain (scale 7-10). [facility] acetaminoph en-codeine (TYLENOL #3) 300-30 mg tablet 02-12 00:00: 00 Yes 1{tbl} Take 1 tablet by mouth every 4 (four) hours as needed for Pain (scale 7-10). [facility] acetaminoph en-codeine (TYLENOL #3) 300-30 mg tablet 02-12 00:00: 00 Yes 1{tbl} Take 1 tablet by mouth every 4 (four) hours as needed for Pain (scale 7-10). [facility] acetaminoph en-codeine (TYLENOL #3) 300-30 mg tablet 02-12 00:00: 00 Yes 1{tbl} Take 1 tablet by mouth every 4 (four) hours as needed for Pain (scale 7-10). [facility] acetaminoph en-codeine (TYLENOL #3) 300-30 mg tablet 02-12 00:00: 00 Yes 1{tbl} Take 1 tablet by mouth every 4 (four) hours as needed for Pain (scale 7-10). [facility] acetaminoph en-codeine (TYLENOL #3) 300-30 mg tablet 02-12 00:00: 00 Yes 1{tbl} Take 1 tablet by mouth every 4 (four) hours as needed for Pain (scale 7-10). [facility] acetaminoph en-codeine (TYLENOL #3) 300-30 mg tablet 02-12 00:00: 00 Yes 1{tbl} Take 1 tablet by mouth every 4 (four) hours as needed for Pain (scale 7-10). [facility] acetaminoph en-codeine (TYLENOL #3) 300-30 mg tablet 02-12 00:00: 00 Yes 1{tbl} Take 1 tablet by mouth every 4 (four) hours as needed for Pain (scale 7-10). [facility] acetaminoph en-codeine (TYLENOL #3) 300-30 mg tablet 02-12 00:00: 00 Yes 1{tbl} Take 1 tablet by mouth every 4 (four) hours as needed for Pain (scale 7-10). [facility] acetaminoph en-codeine (TYLENOL #3) 300-30 mg tablet 02-12 00:00: 00 Yes 1{tbl} Take 1 tablet by mouth every 4 (four) hours as needed for Pain (scale 7-10). [facility] cyclobenzap rine (FLEXERIL) 5 mg tablet 02-12 00:00: 00 Yes 5mg Take 1 tablet by mouth 3 (three) times daily. [facility] acetaminoph en-codeine (TYLENOL #3) 300-30 mg tablet 02-12 00:00: 00 Yes 1{tbl} Take 1 tablet by mouth every 4 (four) hours as needed for Pain (scale 7-10). [facility] cyclobenzap rine (FLEXERIL) 5 mg tablet 02-12 00:00: 00 Yes 5mg Take 1 tablet by mouth 3 (three) times daily. [facility] acetaminoph en-codeine (TYLENOL #3) 300-30 mg tablet 02-12 00:00: 00 Yes 1{tbl} Take 1 tablet by mouth every 4 (four) hours as needed for Pain (scale 7-10). [facility] cyclobenzap rine (FLEXERIL) 5 mg tablet 02-12 00:00: 00 04-10 00:00 :00 No 5mg Take 1 tablet by mouth 3 (three) times daily. [facility] Immunizations Ordered Immunization Name Filled Immunization Name Date Status Comments Source Influenza Virus Vaccine Recomb Quad IM, Preserv and ABX Free 18-64 YRS 2022-08-02 00:00:00 Completed [facility] SARS-COV-2 COVID-19 VACCINE - (MODERNA) 2021-07-22 00:00:00 Completed [facility] Influenza High Dose Quad 2021-07-22 00:00:00 Completed [facility] SARS-COV-2 COVID-19 MODERNA 12+ YRS VACCINE 2020-09-25 00:00:00 Completed [facility] SARS-COV-2 COVID-19 MODERNA VACCINE 2020-09-25 00:00:00 Completed [facility] SARS-COV-2 COVID-19 MODERNA VACCINE 2020-09-25 00:00:00 Completed [facility] SARS-COV-2 COVID-19 MODERNA VACCINE 2020-09-25 00:00:00 Completed [facility] SARS-COV-2 COVID-19 MODERNA VACCINE 2020-09-25 00:00:00 Completed [facility] SARS-COV-2 COVID-19 MODERNA 12+ YRS VACCINE 2020-09-25 00:00:00 Completed [facility] SARS-COV-2 COVID-19 MODERNA 12+ YRS VACCINE 2020-09-25 00:00:00 Completed [facility] SARS-COV-2 COVID-19 MODERNA 12+ YRS VACCINE 2020-09-25 00:00:00 Completed [facility] SARS-COV-2 COVID-19 MODERNA 12+ YRS VACCINE 2020-09-25 00:00:00 Completed [facility] SARS-COV-2 COVID-19 MODERNA 12+ YRS VACCINE 2020-09-25 00:00:00 Completed [facility] SARS-COV-2 COVID-19 MODERNA 12+ YRS VACCINE 2020-09-25 00:00:00 Completed [facility] SARS-COV-2 COVID-19 MODERNA 12+ YRS VACCINE 2020-09-25 00:00:00 Completed [facility] SARS-COV-2 COVID-19 MODERNA 12+ YRS VACCINE 2020-09-25 00:00:00 Completed [facility] SARS-COV-2 COVID-19 MODERNA 12+ YRS VACCINE 2020-09-25 00:00:00 Completed [facility] SARS-COV-2 COVID-19 MODERNA 12+ YRS VACCINE 2020-09-25 00:00:00 Completed [facility] SARS-COV-2 COVID-19 MODERNA 12+ YRS VACCINE 2020-09-25 00:00:00 Completed [facility] SARS-COV-2 COVID-19 MODERNA 12+ YRS VACCINE 2020-08-28 00:00:00 Completed [facility] SARS-COV-2 COVID-19 MODERNA VACCINE 2020-08-28 00:00:00 Completed [facility] SARS-COV-2 COVID-19 MODERNA VACCINE 2020-08-28 00:00:00 Completed [facility] SARS-COV-2 COVID-19 MODERNA VACCINE 2020-08-28 00:00:00 Completed [facility] SARS-COV-2 COVID-19 MODERNA VACCINE 2020-08-28 00:00:00 Completed [facility] SARS-COV-2 COVID-19 MODERNA 12+ YRS VACCINE 2020-08-28 00:00:00 Completed [facility] SARS-COV-2 COVID-19 MODERNA 12+ YRS VACCINE 2020-08-28 00:00:00 Completed [facility] SARS-COV-2 COVID-19 MODERNA 12+ YRS VACCINE 2020-08-28 00:00:00 Completed [facility] SARS-COV-2 COVID-19 MODERNA 12+ YRS VACCINE 2020-08-28 00:00:00 Completed [facility] SARS-COV-2 COVID-19 MODERNA 12+ YRS VACCINE 2020-08-28 00:00:00 Completed [facility] SARS-COV-2 COVID-19 MODERNA 12+ YRS VACCINE 2020-08-28 00:00:00 Completed [facility] SARS-COV-2 COVID-19 MODERNA 12+ YRS VACCINE 2020-08-28 00:00:00 Completed [facility] SARS-COV-2 COVID-19 MODERNA 12+ YRS VACCINE 2020-08-28 00:00:00 Completed [facility] SARS-COV-2 COVID-19 MODERNA 12+ YRS VACCINE 2020-08-28 00:00:00 Completed [facility] SARS-COV-2 COVID-19 MODERNA 12+ YRS VACCINE 2020-08-28 00:00:00 Completed [facility] SARS-COV-2 COVID-19 MODERNA 12+ YRS VACCINE 2020-08-28 00:00:00 Completed [facility] TD, NOS 2020-04-10 00:00:00 Completed [facility] Td 2020-04-10 00:00:00 Completed [facility] Td 2020-04-10 00:00:00 Completed [facility] Td 2020-04-10 00:00:00 Completed [facility] Td 2020-04-10 00:00:00 Completed [facility] Td 2020-04-10 00:00:00 Completed [facility] Td 2020-04-10 00:00:00 Completed [facility] Td 2020-04-10 00:00:00 Completed [facility] Td 2020-04-10 00:00:00 Completed [facility] TD, NOS 2020-04-10 00:00:00 Completed [facility] TD, NOS 2020-04-10 00:00:00 Completed [facility] TD, NOS 2020-04-10 00:00:00 Completed [facility] TD, NOS 2020-04-10 00:00:00 Completed [facility] TD, NOS 2020-04-10 00:00:00 Completed [facility] TD, NOS 2020-04-10 00:00:00 Completed [facility] TD, NOS 2020-04-10 00:00:00 Completed [facility] TD, NOS 2020-04-10 00:00:00 Completed [facility] TD, NOS 2020-04-10 00:00:00 Completed [facility] TD, NOS 2020-04-10 00:00:00 Completed [facility] TD, NOS 2020-04-10 00:00:00 Completed [facility] Zoster Vaccine Recombinant 2018-08-02 00:00:00 Completed [facility] TD, NOS Unknown Completed [facility] SARS-COV-2 COVID-19 MODERNA 12+ YRS VACCINE Unknown Completed [facility] SARS-COV-2 COVID-19 MODERNA 12+ YRS VACCINE Unknown Completed [facility] SARS-COV-2 COVID-19 VACCINE - (MODERNA) Unknown Completed [facility] Influenza Virus Vaccine Recomb Quad IM, Preserv and ABX Free 18-64 YRS Unknown Completed [facility] Influenza High Dose Quad Unknown Completed [facility] Zoster Vaccine Recombinant Unknown Completed [facility] TD, NOS Unknown Completed [facility] SARS-COV-2 COVID-19 MODERNA 12+ YRS VACCINE Unknown Completed [facility] SARS-COV-2 COVID-19 MODERNA 12+ YRS VACCINE Unknown Completed [facility] SARS-COV-2 COVID-19 VACCINE - (MODERNA) Unknown Completed [facility] Influenza Virus Vaccine Recomb Quad IM, Preserv and ABX Free 18-64 YRS Unknown Completed [facility] Influenza High Dose Quad Unknown Completed [facility] Zoster Vaccine Recombinant Unknown Completed [facility] Vital Signs Vital Name Observation Time Observation Value Comments S ource Systolic blood pressure 2023-03-31 17:50:00 142 mm[Hg] [facility] Diastolic blood pressure 2023-03-31 17:50:00 70 mm[Hg] [facility] Heart rate 2023-03-31 17:50:00 70 /min [facility] Respiratory rate 2023-03-31 17:50:00 16 /min [facility] Body height 2023-03-31 17:50:00 177.8 cm [facility] Body weight 2023-03-31 17:50:00 93.985 kg [facility] BMI 2023-03-31 17:50:00 29.73 kg/m2 [facility] Oxygen saturation in Arterial blood by Pulse oximetry 2023-03-31 17:50:00 97 /min [facility] Systolic blood pressure 2023-02-28 18:12:00 123 mm[Hg] [facility] Diastolic blood pressure 2023-02-28 18:12:00 72 mm[Hg] [facility] Heart rate 2023-02-28 18:12:00 87 /min [facility] Body height 2023-02-28 18:12:00 175.3 cm [facility] Body weight 2023-02-28 18:12:00 95.029 kg [facility] BMI 2023-02-28 18:12:00 30.94 kg/m2 [facility] Oxygen saturation in Arterial blood by Pulse oximetry 2023-02-28 18:12:00 96 /min [facility] Systolic blood pressure 2022-10-04 15:35:00 138 mm[Hg] [facility] Diastolic blood pressure 2022-10-04 15:35:00 71 mm[Hg] [facility] Heart rate 2022-10-04 15:35:00 74 /min [facility] Body height 2022-10-04 15:35:00 177.8 cm [facility] Body weight 2022-10-04 15:35:00 97.977 kg [facility] BMI 2022-10-04 15:35:00 30.99 kg/m2 [facility] Oxygen saturation in Arterial blood by Pulse oximetry 2022-10-04 15:35:00 95 /min [facility] Systolic blood pressure 2022-09-14 17:11:00 164 mm[Hg] [facility] Diastolic blood pressure 2022-09-14 17:11:00 72 mm[Hg] [facility] Heart rate 2022-09-14 17:11:00 67 /min [facility] Body temperature 2022-09-14 17:11:00 36.39 Irma [facility] Respiratory rate 2022-09-14 17:11:00 18 /min [facility] Oxygen saturation in Arterial blood by Pulse oximetry 2022-09-14 17:11:00 97 /min [facility] Body height 2022-09-13 01:47:00 177.8 cm [facility] Body weight 2022-09-13 01:47:00 96.979 kg [facility] BMI 2022-09-13 01:47:00 30.68 kg/m2 [facility] Systolic blood pressure 2020-07-31 19:01:00 111 mm[Hg] [facility] Diastolic blood pressure 2020-07-31 19:01:00 69 mm[Hg] [facility] Heart rate 2020-07-31 19:01:00 80 /min [facility] Respiratory rate 2020-07-31 19:01:00 20 /min [facility] Oxygen saturation in Arterial blood by Pulse oximetry 2020-07-31 19:01:00 95 /min [facility] Body temperature 2020-07-31 17:15:00 36.11 Ir[place] [facility] Body weight 2020-07-31 17:15:00 113.399 kg [facility] BMI 2020-07-31 17:15:00 35.87 kg/m2 [facility] Systolic blood pressure 2020-07-31 19:01:00 111 mm[Hg] [facility] Diastolic blood pressure 2020-07-31 19:01:00 69 mm[Hg] [facility] Heart rate 2020-07-31 19:01:00 80 /min [facility] Respiratory rate 2020-07-31 19:01:00 20 /min [facility] Oxygen saturation in Arterial blood by Pulse oximetry 2020-07-31 19:01:00 95 /min [facility] Body temperature 2020-07-31 17:15:00 36.11 [facility] Body weight 2020-07-31 17:15:00 113.399 kg [facility] BMI 2020-07-31 17:15:00 35.87 kg/m2 [facility] Systolic blood pressure 2020-04-11 02:45:11 125 mm[Hg] [facility] Diastolic blood pressure 2020-04-11 02:45:11 60 mm[Hg] [facility] Heart rate 2020-04-11 02:45:11 90 /min [facility] Body temperature 2020-04-11 02:45:11 36.94 Ir[place] [facility] Respiratory rate 2020-04-11 02:45:11 18 /min [facility] Oxygen saturation in Arterial blood by Pulse oximetry 2020-04-11 02:45:11 99 /min [facility] Body weight 2020-04-11 00:18:00 113.399 kg [facility] BMI 2020-04-11 00:18:00 35.87 kg/m2 [facility] Systolic blood pressure 2020-04-11 02:45:11 125 mm[Hg] [facility] Diastolic blood pressure 2020-04-11 02:45:11 60 mm[Hg] [facility] Heart rate 2020-04-11 02:45:11 90 /min [facility] Body temperature 2020-04-11 02:45:11 36.94 Ir[place] [facility] Respiratory rate 2020-04-11 02:45:11 18 /min [facility] Oxygen saturation in Arterial blood by Pulse oximetry 2020-04-11 02:45:11 99 /min [facility] Body weight 2020-04-11 00:18:00 113.399 kg [facility] BMI 2020-04-11 00:18:00 35.87 kg/m2 [facility] Systolic blood pressure 2019-05-01 16:26:00 117 mm[Hg] [facility] Diastolic blood pressure 2019-05-01 16:26:00 49 mm[Hg] [facility] Heart rate 2019-05-01 16:26:00 75 /min [facility] Body temperature 2019-05-01 16:26:00 36.33 Irma [facility] Respiratory rate 2019-05-01 16:26:00 16 /min [facility] Oxygen saturation in Arterial blood by Pulse oximetry 2019-05-01 16:26:00 97 /min [facility] Body weight 2019-05-01 09:14:00 101.969 kg bedscale [facility] BMI 2019-05-01 09:14:00 32.26 kg/m2 [facility] Body height 2019-04-30 00:11:00 177.8 cm [facility] Systolic blood pressure 2019-05-01 16:26:00 117 mm[Hg] [facility] Diastolic blood pressure 2019-05-01 16:26:00 49 mm[Hg] [facility] Heart rate 2019-05-01 16:26:00 75 /min [facility] Body temperature 2019-05-01 16:26:00 36.33 Irma [facility] Respiratory rate 2019-05-01 16:26:00 16 /min [facility] Oxygen saturation in Arterial blood by Pulse oximetry 2019-05-01 16:26:00 97 /min [place] [facility] Body weight 2019-05-01 09:14:[facility] 2019-05-01 09:14:00 32.26 kg/m2 [facility] Body height 2019-04-30 00:11:00 177.8 cm [facility] Procedures Procedure Date / Time Performed Performing Clinician Source [facility] PATIENT FINANCIAL POLICY 2023-02-28 17:59:48 Doctor Unassigned, [place] [facility] ASSIGNMENT OF BENEFITS 2022-10-04 15:12:15 Docto r Unassigned, [place] [facility] LACTIC ACID WHOLE BLOOD 2022-09-13 15:30:00 Conrado Olsonnancy [facility] COVID-19 (ID NOW RAPID TESTING) 2022-09-13 15:30:00 Conrado Olsonnancy [facility] LAB ONLY COVID INTERPRETATION 2022-09-13 15:30[facility] 2022-09-13 14:10:00 Nan Cordova [facility] URINALYSIS 2022-09-13 11:46:00 Nan Cordova [facility] BLOOD CULTURE SCREEN 2022-09-13 11:40:00 Nan Cordova [facility] BLOOD CULTURE SCREEN 2022-09-13 11:12:00 Nan Cordova [facility] VITAMIN B12, LEVEL 2022-09-13 11:12:00 Yumiko Leslie [facility] FOLATE 2022-09-13 11:12:00 Yumiko Leslie [facility] LIPID PANEL (82146)(TOTAL CHOLESTEROL, TRIGLYCERIDES, HDL) 2022-09-13 11:12:00 Nan Cordova [facility] URINALYSIS 2022-09-12 18:31:00 Malcolm Darling [facility] CT STROKE ANGIOGRAM HEAD 2022-09-12 18:19:13 Vincent Darling [facility] CT STROKE ANGIOGRAM NECK 2022-09-12 18:19:13 Vincent Draling [facility] HB ECG ROUTINE & RHYTHM STRIP 2022-09-12 17:54:17 Malcolm Darling [facility] CT STROKE HEAD WO CONTRAST 2022-09-12 17:42:49 Malcolm Darling [facility] TROPONIN I 2022-09-12 17:29:00 Malcolm Darling [facility] BASIC METABOLIC PANEL (NA, K, CL, CO2, GLUCOSE, BUN, CREATININE, CA) 2022-09-12 17:29:00 Malcolm Darling [facility] CBC WITHOUT DIFF 2022-09-12 17:29[facility] GL[facility]COS[facility]EMOGLOBIN (A1C) 2022-09-12 17:29:00 Nan Cordova [facility] PROTHROMBIN TIME / INR 2022-09-12 17:29:00 Celso Darling [facility] ACTIVATED PARTIAL THRMPLAS ARCHIE 2022-09-12 17:29:00 Malcolm Darling [facility] CONSENT/REFUSAL FOR DIAGNOSIS AND TREATMENT 2022-09-12 17:08:48 Doctor Unassigned, [place] [facility] HOSPITAL ADMISSION 2022-09-12 06:01:00 Doctor Un assigned, [place] [facility] ASSIGNMENT OF BENEFITS 2021-07-12 22:17:42 Docto r Unassigned, [place] [facility] US PELVIS LIMITED 2020-12-30 20:42:37 Nuria Kumar [facility] ASSIGNMENT OF BENEFITS 2020-12-30 20:10:07 Docto r Unassigned, [place] [facility] URINALYSIS 2020-07-31 18:42:00 Cyndie Rodney [facility] XR CHEST 1 VW 2020-07-31 18:05:09 [facility] 2020-07-31 17:38:00 Cyndie Rodney [facility] TROPONIN I 2020-07-31 17:38:00 Cyndie Rodney [facility] COMP. METABOLIC PANEL (84321) 2020-07-31 17:38:00 Cyndie Rodney [facility] CBC WITH DIFF 2020-07-31 17:38:00 Cyndie Rodney [facility] ADC,CLC OR LCC ONLY - INFLUENZA A & B DIRECT ANTIGEN 2020-07-31 17:38:00 Cyndie Rodney [facility] N-TERMINAL PRO-BNP 2020-07-31 17:38:00 Cyndie Rodney [facility] LACTIC ACID WHOLE BLOOD 2020-07-31 17:38:00 Cyndie Rodney [facility] NOTICE OF PRIVACY PRACTICES 2020-07-31 17:05:47 Doctor Unassigned, [place] [facility] CONSENT/REFUSAL FOR DIAGNOSIS AND TREATMENT 2020-07-31 17:02:03 Doctor Unassigned, [place] [facility] XR FOREARM 2 VW RIGHT 2020-04-11 01:05:33 Rancho Howe [facility] XR HAND 3+ VW RIGHT 2020-04-11 01:05:33 Eliz Howe [facility] ED LACERATION REPAIR 2020-04-11 01:00:00 Cristiano Howe [facility] NOTICE OF PRIVACY PRACTICES 2020-04-11 00:12:26 Doctor Unassigned, [place] [facility] CONSENT/REFUSAL FOR DIAGNOSIS AND TREATMENT 2020-04-11 00:12:05 Doctor Unassigned, [place] [facility] US RETROPERITONEAL COMPLETE 2020-03-10 20:07:44 Nuria Kumar [facility] ASSIGNMENT OF BENEFITS 2020-03-10 18:49:38 Docto r Unassigned, [place] [facility] XR CHEST 2 VW 2019-10-03 18:38:01 Lillian Youngblood [facility] NOTICE OF BILLING PRACTICES FOR MEDICARE PATIENTS 2019-10-03 18:25:18 Doctor Unassigned, [place] [facility] PATIENT FINANCIAL POLICY 2019-10-03 18:21:31 Doctor Unassigned, [place] [facility] NO SHOW OR MISSED APPOINTMENT POLICY ACKNOWLEDGEMENT 2019-10-03 18:21:07 Doctor Unassigned, [place] [facility] CONSENT/REFUSAL FOR DIAGNOSIS AND TREATMENT 2019-10-03 18:20:35 Doctor Unassigned, [place] [facility] ASSIGNMENT OF BENEFITS 2019-10-03 18:20:12 Docto r Unassigned, [place] [facility] FOLATE 2019-05-01 10:47:00 Mirlande Marianoraphael [facility] BASIC METABOLIC PANEL (NA, K, CL, CO2, GLUCOSE, BUN, CREATININE, CA) 2019-05-01 10:47:00 [facility] FREE T3 2019-05-01 10:47:00 Jose Luis Velarde [facility] EXTRA TUBE LAV 2019-05-01 10:46:00 Hector Santana [facility] RETICULOCYTES AUTOMATED 2019-04-30 22:56:00 Jose Luis lim [facility] VITAMIN B12, LEVEL 2019-04-30 16:04:00 Michelle Mariano [facility] THYROID STIMULATING HORMONE 2019-04-30 16:04:00 [facility] (NA, K, CL, CO2, GLUCOSE, BUN, CREATININE, CA) 2019-04-30 16:04:00 [facility] SPINE WO CONTRAST 2019-04-29 20:20:06 Malcolm Darling [facility] XR HIPS 2 VW LEFT 2019-04-29 18:27:21 Malcolm Darling [facility] CT STROKE HEAD WO CONTRAST 2019-04-29 18:16:09 Malcolm Darling [facility] TROPONIN I 2019-04-29 17:52:00 Malcolm Darling [facility] BASIC METABOLIC PANEL (NA, K, CL, CO2, GLUCOSE, BUN, CREATININE, CA) 2019-04-29 17:52:00 Malcolm Darling [facility] PROFILE / HEMOGRAM 2019-04-29 17:52:00 Malcolm Darling [facility] PROTHROMBIN TIME / INR 2019-04-29 17:52:00 Celso Darling [facility] ACTIVATED PARTIAL THRMPLAS ARCHIE 2019-04-29 17:52:00 Malcolm Darling [facility] Encounters Start Date/Time End Date/Time Encounter Type Admission Type Attending Clinicians Care Facility Care Department Encounter ID Source 2021-06-18 13:57:30 Emergency [facility] [id number] [facility] 2023-07-12 00:00:00 2023-07-12 00:00:00 [facility] [id number] [facility] 2023-06-08 00:00:00 2023-06-08 00:00:00 [facility] InstituteILIA [facility]INAE?[facility] [id number] [facility] 2023-05-02 00:00:00 2023-05-02 00:00:00 Refill [facility] NICOLAS?[facility] [id number] [facility] 2023-05-01 11:30:00 2023-05-01 11:30:00 Outpatient SUGAR LOPEZ [facility] [id number] [facility] 2023-04-04 10:30:00 2023-04-04 10:30:00 Outpatient R SUGAR SANTANA [facility] [id number] [facility] 2023-03-31 13:30:00 2023-03-31 13:45:34 Outpatient SUGAR LOPEZ [facility] [id number] [facility] 2023-03-31 13:30:00 2023-03-31 13:45:34 [facility] 1..840.114 350.1.13.10 4.2.7.2.686 [id number] [facility] 2023-02-28 13:30:00 2023-02-28 13:57:40 [facility] [id number] [facility] 2023-02-28 13:30:00 2023-02-28 13:57:40 [facility] 1..840.114 350.1.13.10 4.2.7.2.686 [id number] [facility] 2023-02-28 00:00:00 2023-02-28 00:00:00 Orders Only Doctor Unassigned, [place] [facility] 1.840.114 350.1.13.10 4.2.7.2.686 [id number] [facility] 2023-02-08 00:00:00 2023-02-08 00:00:00 [facility]phone [facility] 1..840.114 350.1.13.10 4.2.7.2.686 [id number] [facility] 2022-10-04 10:00:00 2022-10-04 10:52:28 Outpatient R HA OLIVARES HOWARD [facility] [id number] [facility] 2022-10-04 10:00:00 2022-10-04 10:52:28 Office Visit Ha Olivares [facility] NICOLAS?[facility] 1..840.114 350.1.13.10 4.2.7.2.686 [id number] [facility] 2022-10-04 00:00:00 2022-10-04 00:00:00 Orders Only Doctor Unassigned, [place] [facility] 1..114 350.1.13.10 4.2.7.2.686 [id number] [facility] 2022-09-15 00:00:00 2022-09-15 00:00:00 Transition of Care Matthew Maxwellramiro CARDENASNevaeh BUDDY MARINELLI 1..114 350.1.13.10 4.2.7.2.686 [id number] [facility] 2022-09-12 11:20:00 2022-09-14 14:37:00 Outpatient BILL CHACON [facility] SILVIA [id number] [facility] 2022-09-12 11:20:00 2022-09-14 14:37:00 Emergency Malcolm Darling [facility] 1..114 350.1.13.10 4.2.7.2.686 [id number] [facility] 2021-07-12 17:15:00 2021-07-12 17:15:00 Outpatient NURIA SOLOMON [facility] [id number] [facility] 2021-07-12 16:21:19 2021-07-12 16:36:19 Irrigation Flume Layer Visit Pob, Adc Lab Main Nuria Kumar [facility] 1..114 350.1.13.10 4.2.7.2.686 [id number] [facility] 2021-07-12 00:00:00 2021-07-12 00:00:00 Orders Only Doctor Unassigned, [place] [facility] 1..114 350.1.13.10 4.2.7.2.686 [id number] [facility] 2020-12-30 15:00:00 2020-12-30 23:59:00 Hospital Encounter Nuria Kumar A [facility] 1..840.114 350.1.13.10 4.2.7.2.686 [id number] [facility] 2020-12-30 00:00:00 2020-12-30 00:00:00 Outpatient NURIA SOLOMON [facility] [id number] [facility] 2020-12-30 00:00:00 2020-12-30 00:00:00 Orders Only Doctor Unassigned, [place] [facility] 1.2.840.114 350.1.13.10 4.2.7.2.686 [id number] [facility] 2020-12-11 19:30:00 2020-12-11 19:30:00 Outpatient Glen Hanna HCAT[facility] PA[facility] [id number] [facility] 2020-10-13 19:46:35 2020-10-13 19:46:35 Outpatient Betty Donn IFEOMATO HCATO [id number] [facility] 2020-09-25 09:40:00 2020-09-25 09:40:00 Outpatient GAYLA VALE [facility] [id number] [facility] 2020-08-28 09:40:00 2020-08-28 09:40:00 Outpatient GAYLA VALE [facility] [id number] [facility] 2020-07-31 11:18:00 2020-07-31 14:03:00 Emergency Cyndie Rodney [facility] 1..840.114 350.1.13.10 4.2.7.2.686 [id number] [facility] 2020-07-31 11:18:00 2020-07-31 14:03:00 Emergency X Cyndie RODNEY [facility] ERT [id number] [facility] 2020-07-31 11:18:00 2020-07-31 14:03:00 Emergency Cyndie Rodney [facility] 1.2.840.114 350.1.13.10 4.2.7.2.686 [id number] 2020-07-31 00:00:00 2020-07-31 00:00:00 Orders Only Doctor Unassigned, [place] [facility] 1.2.840.114 350.1.13.10 4.2.7.2.686 [id number] [facility] 2020-07-31 00:00:00 2020-07-31 00:00:00 Orders Only Doctor Unassigned, [place] [facility] 1.2.840.114 350.1.13.10 4.2.7.2.686 [id number] 2020-07-25 13:20:22 2020-07-25 13:40:22 Laboratory Only Lab, [facility] Chrisb Tana Gonsales [facility] [address] [facility] 1.2.840.114 350.1.13.10 4.2.7.2.686 [id number] [facility] 2020-07-25 13:20:22 2020-07-25 13:40:22 Laboratory Only Lab, [facility] [address] [facility] 1.2.840.114 350.1.13.10 4.2.7.2.686 [id number] 2020-07-25 13:20:00 2020-07-25 13:20:00 Outpatient Jorge Alberto GONSALES [facility] [id number] [facility] 2020-04-10 19:22:00 2020-04-10 21:53:00 Emergency Eliz Howe [facility] 1.2.840.114 350.1.13.10 4.2.7.2.686 [id number] [facility] 2020-04-10 19:22:00 2020-04-10 21:53:00 Emergency Eliz Howe [facility] 1.2.840.114 350.1.13.10 4.2.7.2.686 [id number] 2020-03-10 13:30:00 2020-03-10 23:59:00 Hospital Encounter Nuria Kumar [facility] 1.2.840.114 350.1.13.10 4.2.7.2.686 [id number] [facility] 2020-03-10 13:30:00 2020-03-10 23:59:00 Hospital Encounter Nuria Kumar [facility] 1.2.840.114 350.1.13.10 4.2.7.2.686 [id number] 2020-03-10 00:00:00 2020-03-10 00:00:00 Outpatient R NURIA KUMAR [facility] [id number] [facility] 2020-03-10 00:00:00 2020-03-10 00:00:00 Orders Only Doctor Unassigned, [place] [facility] 1.2.840.114 350.1.13.10 4.2.7.2.686 [id number] [facility] 2020-03-10 00:00:00 2020-03-10 00:00:00 Orders Only Doctor Unassigned, [place] [facility] 1.2.840.114 350.1.13.10 4.2.7.2.686 [id number] 2019-10-03 12:31:11 2019-10-03 23:59:00 Outpatient R RADIOLOGY [facility] [id number] [facility] 2019-10-03 12:30:00 2019-10-03 23:59:00 Hospital Encounter Radiology [facility] 1.2.840.114 350.1.13.10 4.2.7.2.686 [id number] [facility] 2019-10-03 12:30:00 2019-10-03 23:59:00 Hospital Encounter Radiology [facility] 1.2.840.114 350.1.13.10 4.2.7.2.686 [id number] 2019-10-03 00:00:00 2019-10-03 00:00:00 Orders Only Doctor Unassigned, [place] [facility] 1.2.840.114 350.1.13.10 4.2.7.2.686 [id number] [facility] 2019-10-03 00:00:00 2019-10-03 00:00:00 Orders Only Doctor Unassigned, [place] [facility] 1.2.840.114 350.1.13.10 4.2.7.2.686 [id number] 2019-05-02 00:00:00 2019-05-02 00:00:00 [facility] 1.2.840.114 350.1.13.10 4.2.7.2.686 [id number] [facility] 2019-05-02 00:00:00 2019-05-02 00:00:00 [facility] 1.2.840.114 350.1.13.10 4.2.7.2.686 [id number] 2019-04-29 12:37:18 2019-05-01 15:15:00 [facility] 1.2.840.114 350.1.13.10 4.2.7.2.686 [id number] [facility] 2019-04-29 12:37:18 2019-05-01 15:15:00 Emergency [facility] 1.2.840.114 350.1.13.10 4.2.7.2.686 [id number] Results Test Description Test Time Test Comments Results Result Co mments Source [facility] Tyler[facility]YCOS[facility] HEM[facility]GLOBIN (A1C)2022-09-13 12:57:02* Test Item Value Reference Range Interpretation Comme nts HGB A1C (test code = 4548-4) 5.2 % 4.0-5.7 ANTHONY (test code = ANTHONY) Reference RangesNormal: <5.7%Prediabetes: 5.7 - 6.4%Diabetes: > 6.5% Lab Interpretation (test code = 18407-2) Normal [facility] TylerTroponin I - Code [id number] 18:02:37* Test Item Value Reference Range Interpretation Comments TROPONIN I (test code = 5015317365) 0.008 ng/mL See_Comment [Automated message] The system which generated this result transmitted reference range: <=0.034. The reference range was not used to interpret this result as normal/abnormal. ANTHONY (test code = ANTHONY) Reference (Normal) Range (defined by the 99th percentile reference limit): <= 0.034 ng/mL Note: Cardiac troponin begins to rise 3-4 hours after the onset of ischemia. Repeat in 4-6 hours if the sample was drawn within 3-4 hours of the onset of the symptom and found normal. Diagnosis of myocardial injury is made with acute changes in cTn concentrations with at least one serial sample above the 99th percentile upper reference limit (URL), taken together with the patient's clinical presentation. Biotin has been reported to cause a negative bias, interpret results relative to patient's use of biotin. Lab Interpretation (test code = 67105-2) Normal [facility] Metabolic Panel (NA, K, CL, CO2, Glucose, BUN, Creatinine, CA) - Code Pqcdee5113-70-25 17:51:15* Test Item Value Reference Range Interpretation Comme nts NA (test code = 4173298572) 139 mmol/L 135-145 K (test code = 3032518844) 4.5 mmol/L 3.5-5.0 CL (test code = 7115358829) 108 mmol/L 98-108 CO2 TOTAL (test code = 9290749607) 25 mmol/L 23-31 AGAP (test code = 5172587181) 2-16 BUN (test code = 8171814723) 20 mg/dL 7-23 GLUCOSE (test code = 2065508860) 100 mg/dL 70-110 CREATININE (test code = 7727871430) 1.20 mg/dL 0.60-1.25 CALCIUM (test code = 9245304443) 9.2 mg/dL 8.6-10.6 eGFR (test code = 3160950920) mL/min/1.73m2 ANTHONY (test code = ANTHONY) Association of Glomerular Filtration Rate (GFR) and Staging of Kidney Disease* + + +- +| GFR (mL/min/1.73 m2) ?| With Kidney Damage ?| ?Without Kidney Damage+ ------+ ----+ ------+| ?>90 ?| ?Stage one ?| ? Normal ?+ -+ + -+| ?60-89 ?| ?Stage two ?| ? Decreased GFR ? + + +- +| ?30-59 ?| ?Stage three ?| ? Stage three ? + + +- +| ?15-29 ?| ?Stage four ? | ? Stage four ?+ -+ + -+| ?<15 (or dialysis) ? ?| ?Stage five ? | ? Stage five ?+ -+ + -+ *Each stage assumes the associated GFR level has been in effect for at least three months. ?Stages 1 to 5, with or without kidney disease, indicate chronic kidney disease. Notes: Determination of stages one and two (with eGFR >59mL/min/1.73 m2) requires estimation of kidney damage for at least three months as defined by structural or functional abnormalities of the kidney, manifested by either:Pathological abnormalities or Markers of kidney damage (including abnormalities in the composition of the blood or urine or abnormalities in imaging tests). [facility] TyleraPTT - Code Gfbeor7411-41-73 17:46:56* Test Item Value Reference Range Interpretation Comme nts APTT Patient (test code = 3173-2) See_Comment [Automated message] The system which generated this result transmitted reference range: 23 - 38 Seconds. The reference range was not used to interpret this result as normal/abnormal. ANTHONY (test code = ANTHONY) The [facility] patient population mean normal value for aPTT is 30 seconds. Lab Interpretation (test code = 79271-2) Normal [facility] TylerProthrombin Time / INR - Code Ywbugd0212-07-83 17:44:37* Test Item Value Reference Range Interpretation Comme nts PROTIME PATIENT (test code = 5964-2) See_Comment [Automated messa ge] The system which generated this result transmitted reference range: 12.0 - 14.7 Seconds. The reference range was not used to interpret this result as normal/abnormal. INR (test code = 6301-6) Normal INR <1.1; Warfarin Therapeutic range 2.0 to 3.0 or 2.5 to 3.5, depending upon the indications. Lab Interpretation (test code = 82864-8) Normal [facility] TylerCBC without Diff - Code Rfalbv0071-34-47 17:36:55* Test Item Value Reference Range Interpretation Comme nts WBC (test code = 6690-2) See_Comment [Automated message] The system which generated this result transmitted reference range: 4.20 - 10.70 10*3/?L. The reference range was not used to interpret this result as normal/abnormal. RBC (test code = 789-8) See_Comment L [Automated message] The system which generated this result transmitted reference range: 4.26 - 5.52 10*6/?L. The reference range was not used to interpret this result as normal/abnormal. HGB (test code = 718-7) 13.2 g/dL 12.2-16.4 HCT (test code = 4544-3) 40.2 % 38.4-49.3 MCH (test code = 785-6) 34.7 pg 26.1-32.7 H MCV (test code = 787-2) 105.8 fL 81.7-95.6 H MCHC (test code = 786-4) 32.8 g/dL 31.2-35.0 PLT (test code = 777-3) See_Comment [Automated message] The system which generated this result transmitted reference range: 150 - 328 10*3/?L. The reference range was not used to interpret this result as normal/abnormal. MPV (test code = 54676-6) 9.5 fL 9.8-13.0 L RDW-CV (test code = 788-0) 13.2 % 12.1-15.4 RDW-SD (test code = 75528-3) 51.8 fL 38.5-51.6 H NRBC x10^3 (test code = 1689166506) See_Comment [Automated DEONTICSa SkyBitz] The system which generated this result transmitted reference range: 10*3/?L. The reference range was not used to interpret this result as normal/abnormal. NRBC/100 WBC (test code = 4838216151) See_Comment [Automated DEONTICSa [employer]] The system which generated this result transmitted reference range: 0.0 - 10.0 /100 WBCs. The reference range was not used to interpret this result as normal/abnormal. IPF % (test code = 1081404676) Lab Interpretation (test code = 39888-2) Abnormal [facility] TylerUS PELVIS [id number] 20:44:11HISTORY: Localized edema. TECHNIQUE: Urinary bladder is evaluated in distended state and immediatelyafter patient voided. FINDINGS: Distended urinary bladder showed mild trabecular hypertrophy. Nofluid in the cul-de-sac. Amount of urine accumulated within the urinarybladder was approximately 126 ml. Immediately after patient voided,estimated amount of residual urine in the bladder was 19 ml, indicating 85% ejection with small amount of urine retained in the bladder lumen. CONCLUSIONS: Small amount of residual urine seen immediately after patientvoided. Mild trabecular hypertrophy of the mucosal lining of the urinarybladder noted, otherwise normal study.[facility], Radiant Results Inft User - 12/30/2020 3:45 PM CDTHISTORY: Localized edema.TECHNIQUE: Urinary bladder is evaluated in distended state and immediatelyafter patient voided.FINDINGS: Distended urinary bladder showed mild trabecular hypertrophy. Nofluid in the cul-de-sac. Amount of urine accumulated within the urinarybladder was approx imately 126 ml. Immediately after patient voided,estimated amount of residual urine in the bladder was 19 ml, indicating 85% ejection with small amount of urine retained in the bladder lumen.CONCLUSIONS: Small amount of residual urine seen immediately after patientvoided. Mild trabecular hypertrophy of the mucosal lining of the urinarybladder noted, otherwise normal study.[facility]- XR FLUORO FOR SPINE [id number] 19:56:00 [facility] 1935 Sex: M Patient Name: CARL SANTANA Unit No: [id number] EXAMS: CPT CODE: [id number] XR FLUORO FOR SPINE INJ 00901 LUMBAR EPIRADICULAR INJECTION REFERRAL PHYSICIAN: Donn Hernández M.D. 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 FINDINGS: Good flow seen through the right L3-4 and right L4-5 foramen and more patchy flow seen through the left L4- 5 foramen with very tight flow through the left L3-4 foramen. Retrograde flow across the L4-5 disc shows mild anterior epidural displacement. Flow was limited cephalad in the lateral recesses across the L3-4 disc. Provocation with injection was negative. Anestheticresponse was positive with the patient noting complete relief of his low back and bilateral lower extremity pain. Preinjection VAS 3/10. Postinjection VAS 0/10. Steroid response pending follow-up. ESTIMATED BLOOD LOSS: Minimal ANESTHESIA: TIVA COMPLICATIONS: Urinary retention and PACU DETAILS OF PROCEDURE: After obtaining stable vital signs, informed consent and IV access, with no contraindications, the patient was taken to the operating room and placed in a prone position with all extremities padded and appropriate monitors placed. The patient was sterilely prepped and draped over the lumbosa cral spine. Using fluoroscopic visualization the insertion sites were marked for paravertebral approaches and using standard technique, a 25 gauge needle was advanced to the base of each pedicle without paresthesias. Isovue-300 contrast 0.2 mL of was injected incrementally with frequent negative aspirations to produce each epidurogram. There were no signs of intravascular or intrathecal uptake. Bupivicaine 0.75% 0.25 mL with lidocaine 4% 0.25 mL and Decadron 5 mg was then incrementally injectedwith frequent negative aspirations and again there were no signs of intravascular or intrathecal uptake. The needles were removed and the patient was taken to the PACU in good condition. Image: Image1 Image: Image 2 Image: Image 3 [facility] NAME: CARL SANTANA JR [address] [facility] PHYS: Glen Pereira MD [place], [place] [address] : 1935 AGE: 85 SEX: M LOC: MadhuAJ PHONE #: [phone] EXAM DATE: 12/11/2020 STATUS: REG [facility] FAX #: [phone] RAD #: [id number] D/C DT PAGE 1 Signed Report (CONTINUED) Patient Name: CARL SANTANA Marivel URIBE Unit No: [id number] EXAMS: CPT CODE: [id number] XR FLUORO FOR SPINE INJ 59823 (Continued) at 1955 Reported and signed by: Glen Hanna M.D. CC: Technologist: Tricia Kwan(R) Transcribed D/ (1955) [facility]: [facility] [address] [facility] PHYS: Glen Pereira MD [place], [place] [address] : 1935 AGE: 85 SEX: M LOC: MadhuAJ PHONE #: [phone] EXAM DATE: 12/11/2020 STATUS: REG [facility] FAX #: [phone] RAD #: [id number] D/C DT PAGE 2 Signed Report Patient Name: CARL SANTANA Marivel URIBE Unit No: [id number] EXAMS: CPT CODE: [id number] XR FLUORO FOR SPINE INJ 69293 (Continued) Orig Print D/T: S: 12/11/2020 (1958) [facility] [address] [facility] Main PHYS: Glen Pereira MD [place], [place] [address] :1935 AGE: 85 SEX: M LOC: ANGEL PHONE #: [phone] EXAM DATE: 12/11/2020 STATUS: REG [facility] FAX #: [phone] [facility] #: [id number] D/C DT PAGE 3 Signed Report- MRI C-SPINE W/O [id number] 12:31:00 [facility] 1935 Sex: M Patient Name: CARL SANTANA JR Unit No: [id number] EXAMS: CPT CODE: [id number] MRI C-SPINE W/O CONT [id number]: 1. At C2-3 there is no evidence for disc bulge or herniation, bony canal or foraminal stenosis. Bilateral facet degeneration is present. 2. At C3-4 there is endplate spur formation and associated disc bulging with marked left foraminal narrowing and mild right-sided stenosis. The canal is mildly stenotic with an AP diameter of 12 mm. 3. At C4-5 there is endplate spur formation and discbulging lateralizing right posterior lateral and foraminal with marked right foraminal narrowing and moderate to marked left-sided stenosis. Central canal stenosis is seen with an AP diameter of 11 mm. Marked bilateral facet degeneration is present. 4. At C5-6 there is a mild retrolisthesis with endplate spur formation and disc bulging. Moderate to marked bilateral foraminal narrowing is present.The canal is stenotic with an AP diameter of 11 mm. Bilateral facet degeneration is noted. 5. At C6-7 there is a mild degenerative spondylolisthesis and 3 mm of disc bulging with moderate bilateral foraminal narrowing. No canal stenosis is seen. Facet degeneration is present. 6. At C7-T1 there is no evidence for disc bulge or herniation, bony canal or foraminal stenosis. COMMENT: COMPARISON: No prior exams available. Scans were performed in the sagittal and axial planes utilizing T1, gradient ec ho, T2 and inversion recovery images. Endplate and disc degeneration is seen from C2 to C7. The C7-T1 disc is desiccated. The cord appears normal in size and signal. at 1231 Reported and signed by: Diomedes Marcelino MD CC: Mao Hernández MD Technologist: ROLLY NORWOOD.MRI,CT Transcribed D/ (1231) AlaynaL [facility] NAME: CARL SANTANA JR [address] [facility] PHYS: Donn Ivory : 1935 AGE: 85 SEX: [place] [address] LOC: Y.MRI PHONE #: [phone] EXAM DATE: 10/23/2020 STATUS: REG CLI FAX #: [phone] RAD #: [id number] D/C DT PAGE 1 Signed Report Patient Name: CARL SANTANA JR Unit No: [id number] EXAMS: CPT CODE: [id number] MRI C-SPINE W/O CONT 04723 (Continued) Orig Print D/T: S: 10/23/2020 (1234) [facility] NAME: CARL SANTANA JR [address] [facility] PHYS: Donn Ivory Yvonne : 1935 AGE: 85 SEX: [place], [place] [address] LOC: Y.MRI PHONE #: [phone] EXAM DATE: 10/23/2020 STATUS: REG CLI FAX #: [phone] RAD #: [id number] D/C DT PAGE 2 Signed Report- MRI L-SPINE W/O [id number] 12:21:00 [facility] 1935 Sex: M Patient Name: CARL SANTANA Unit No: [id number] EXAMS: CPT CODE: [id number] MRI L-SPINE W/O CONT 87014 DIAGNOSIS: 1. At L1-2 there is a slight retrolisthesis with disc bulging. No canal or foraminal narrowing is seen. 2. At L2-3 there is a mild retrolisthesis and associated disc bulging with mild foraminal narrowing. Facet degeneration is seen with slight narrowing of the central canal. 3. At L3-4 t here is a grade 1 retrolisthesis with endplate spur formation and disc bulging lateralizing into the foramina. Moderate to marked right foraminal narrowing is present with moderate left-sided stenosis. Moderate central canal stenosis is seen with facet and ligamentum labrum hypertrophic and degenerative change. 4. At L4-5 there is 2 mm of disc bulging with mild foraminal narrowing. Mild narrowing of the central canal is present with facet and ligamentum flavum hypertrophic and degenerative change. 5. At L5-S1 there is no evidence for disc bulge or herniation, bony canal or foraminal stenosis. Bilateral facet degeneration is present. COMMENT: COMPARISON: No prior exams available. Scans were performed in the sagittal and axial planes utilizing T1, T2 and inversion recovery images. Endplate and disc degeneration is present at all levels. There is a thoracolumbar scoliosis convex right. Disc configurations are as described. Spondylitic changes are as noted. The conus is in the expected location. The description these findings assumes a normal count of 5 lumbar type vertebra. at 1221 Reported and signed by: Diomedes Marcelino MD CC: Donn Hernández MD Technologist: ROLLY NORWOOD.MRI,CT Transcribed D/ (1221) [facility] NAME: CARL SANTANA JR [address] [facility] PHYS: Donn Ivory : 1935 AGE: 85 SEX: M [place] [address] LOC: Y.MRI PHONE #: [phone] EXAM DATE: 10/23/2020 STATUS: REG CLI FAX #: [phone] RAD #:[id number] D/C DT PAGE 1 Signed Report Patient Name: CARL SANTANA JR Unit No: [id number] EXAMS: CPTCODE: [id number] MRI L- SPINE W/O CONT [id number] (Continued) Orig Print D/T: S: 10/23/2020 (1224) [facility] NAME: CARL SANTANA JR [address] [facility] PHYS: Donn Ivory :1935 AGE: 85 SEX: M [place] [address] LOC: Y.MRI PHONE #: [phone] EXAM DATE: 10/23/2020 STATUS: REG CLI FAX #: [phone] RAD #: [id number] D/C DT PAGE 2 Signed Report [id number] 19:31:00* Test Item Value Reference Range Interpretation Comme nts APPEARANCE (test code = 7966322725) Clear Clear COLOR (test code = 5344381285) Yellow Yellow PH (test code = 1155528285) 4.8-8.0 SP GRAVITY (test code = 6862359960) 1.003-1.030 GLU U QUAL (test code = 5942307236) Normal Normal BLOOD (test code = 4262251004) Negative Negative INTERFERENCE FRO M ASCORBIC ACID MAY CAUSE FALSE NEGATIVE RESULT KETONES (test code = 2615418976) Negative Negative PROTEIN (test code = 2887-8) Negative Negative UROBILIN (test code = 8183994662) Normal Normal BILIRUBIN (test code = 2489058678) Negative Negative NITRITE (test code = 2186204957) Negative Negative LEUK MANDO (test code = 3409269804) Negative Negative RBC/HPF (test code = 9343869528) See_Comment [Automated messa ge] The system which generated this result transmitted reference range: 0 - 3 HPF. The reference range was not used to interpret this result as normal/abnormal. WBC/HPF (test code = 6969039517) See_Comment [Automated messa ge] The system which generated this result transmitted reference range: 0 - 5 HPF. The reference range was not used to interpret this result as normal/abnormal. BACTERIA (test code = 5683060987) Negative Negative MUCOUS (test code = 9896358529) Slight Negative LPF A HYAL CAST (test code = 6418395345) See_Comment [Automated messa ge] The system which generated this result transmitted reference range: <=2 LPF. The reference range was not used to interpret this result as normal/abnormal. Lab Interpretation (test code = 98587-0) [facility] Tyler[facility]-TERMIN[facility] [id number] 19:03:00* Test Item Value Reference Range Interpretation Comme nts NT-proBNP (test code = 2313461070) 287 pg/mL See_Comment [Automated message] The system which generated this result transmitted reference range: <=450. The reference range was not used to interpret this result as normal/abnormal. ANTHONY (test code = ANTHONY) Biotin has been reported to cause a negative bias, interpret results relative to patient's use of biotin. Lab Interpretation (test code = 21211-9) Normal [facility] TylerTROPONIN [id number] 18:16:00* Test Item Value Reference Range Interpretation Comme nts TROPONIN I (test code = 4962329527) <0.012 See_Comment [Automated message] The system which generated this result transmitted reference range: <=0.034 ng/mL. The reference range was not used to interpret this result as normal/abnormal. ANTHONY (test code = ANTHONY) Equal or Less than 0.034 ng/ml---Normal ?Note: Cardiac troponin begins to rise 3-4 hours after the onset of ischemia. Repeat in 4-6 hours if the sample was drawn within 3-4 hours of the onset of the symptom and found normal. Between 0.035 and 0.120 ng/mL--- Borderline. Questionable myocardial injury or necrosis ? ?Note: Serial measurement may be necessary to confirm or exclude the diagnosis of myocardial injury or necrosis; Clinical correlation (symptoms, EKGs, imaging studies, and others) required; Repeat in 4-6 hours if clinically indicated. ? Equal or Higher than 0.121 ng/mL---Abnormal. Myocardial Injury or Necrosis Likely ? Biotin has been reported to cause a negative bias, interpret results relative to patient's use of biotin. ? Lab Interpretation (test code = 20029-5) Normal [facility] TylerADC,CLC OR [facility] ONLY - INFLUENZA A & B DIRECT [id number] 18:09:00* Test Item Value Reference Range Interpretation Comme nts Influenza A (test code = 74470-8) Negative Negative Influenza B (test code = 71367-8) Positive Negative A Lab Interpretation (test cod e = 34546-4) [facility]normal [facility] TylerXR CHEST 1 [id number] 18:08:55Impression: Bilateral hazy peripheral opacities in mid to lower lung zonemay represent viral-atypical pneumonia including Covid pneumonia. Disclaimer: Generally, the findings on chest imaging in COVID-19 are notspecific, and overlap with other infections, including influenza, H1N1,SARS and MERS.According to the Centers for Disease Control (CDC) and the [employer], viral testing r emains the only specific method of diagnosiseven if CXR or CT findings are suggestive of COVID-19. Exam: XR CHEST 1 VW 07/31/2020 11:42 AM Clinical History: Fatigue Comparison: Radiograph of 10/03/2019 Technique: frontal view of the chest Findings: Bilateral hazy hazy opacities sparing subpleural area. Unchanged leftbasilar atelectasis.No pleural effusion. ?No pneumothorax. The cardiomediastinal silhouette appears normal. No acute osseous abnormality. [facility], Radiant Results Inft User - 12/11/979133:09 PM CSTExam: XR CHEST 1 VW 07/31/2020 11:42 AMClinical History: FatigueComparison: Radiograph of 10/03/2019Technique: frontal view of the chestFindings: Bilateral hazy hazy opacities sparing subpl eural area. Unchanged leftbasilar atelectasis.No pleural effusion. No pneumothorax. The cardiomediastinal silhouette appears normal. No acute osseous abnormality. IMPRESSIONImpression: Bilateral hazyperipheral opacities in mid to lower lung zonemay represent viral-atypical pneumonia including Covid pneumonia.Disclaimer: Generally, the findings on chest imaging in COVID-19 are notspecific, and overlap with other infections, including influenza, H1N1,SARS and MERS.According to the Centers for Disease Control (CDC) and the [employer], viral testing remains the only specific method of diagnosiseven if CXR or CT findings are suggestive of COVID-19.[facility] TylerCOMP. METABOLIC PANEL (13639)2020-07-31 18:06:00* Test Item Value Reference Range Interpretation Comme nts NA (test code = 2889763636) 138 mmol/L 135-145 K (test code = 7864112022) 4.6 mmol/L 3.5-5 CL (test code = 7556681736) 106 mmol/L 98-108 CO2 TOTAL (test code = 2839481471) 22 mmol/L 23-31 L AGAP (test code = 2553190525) 2-16 BUN (test code = 1431517289) 45 mg/dL 7-23 H GLUCOSE (test code = 9839460404) 115 mg/dL 70-110 H CREATININE (test code = 6892084909) 1.55 mg/dL 0.6-1.25 H TOTAL BILI (test code = 9035810958) 0.6 mg/dL 0.1-1.1 CALCIUM (test code = 7116741195) 10.0 mg/dL 8.6-10.6 T PROTEIN (test code = 3975750440) 7.1 g/dL 6.3-8.2 ALBUMIN (test code = 4816375738) 3.8 g/dL 3.5-5 ALK PHOS (test code = 9684152580) 79 U/L 34-122 ALTv (test code = 1742-6) 49 U/L 5-50 AST(SGOT) (test code = 8519002757) 34 U/L 13-40 eGFR Calculation (Non-) (test code = 3490413561) mL/min/1.73m2 eGFR Calculation () (test code = 9523547146) mL/min/1.73m2 ANTHONY (test code = ANTHONY) Association of Glomerular Filtration Rate (GFR) and Staging of Kidney Disease* + --+ --+ ------+| GFR (mL/min/1.73 m2) ?| With Kidney Damage ?| ?Without Kidney Damage+ --------+ --------+ +| ?>90 ?| ?Stage one ?| ? Normal ?+ ---+ ---+ -------+| ?60-89 ?| ?Stage two ?| ? Decreased GFR ? + --+ --+ ------+| ?30-59 ?| ?Stage three ?| ? Stage three ? + --+ --+ ------+| ?15-29 ?| ?Stage four ? | ? Stage four ?+ ---+ ---+ -------+| ?<15 (or dialysis) ? ?| ?Stage five ? | ? Stage five ?+ ---+ ---+ -------+ *Each stage assumes the associated GFR level has been in effect for at least three months. ?Stages 1 to 5, with or without kidney disease, indicate chronic kidney disease. Notes: Determination of stages one and two (with eGFR >59mL/min/1.73 m2) requires estimation of kidney damage for at least three months as defined by structural or functional abnormalities of the kidney, manifested by either:Pathological abnormalities or Markers of kidney damage (including abnormalities in the composition of the blood or urine or abnormalities in imaging tests). Lab Interpretation (test code = 24189-7) [facility]normal [facility] TylerMAGNESIUM2020-12-11 18:06:00* Test Item Value Reference Range Interpretation Comme nts MAGNESIUM (test code = 8539165762) 2.1 mg/dL 1.7-2.4 Lab Interpretation (test cod e = 58337-2) Normal [facility] TylerCB WITH [id number] 17:51:00* Test Item Value Reference Range Interpretation Comme nts WBC (test code = 6690-2) See_Comment [Automated messa ge] The system which generated this result transmitted reference range: 4.20 - 10.70 10*3/?L. The reference range was not used to interpret this result as normal/abnormal. RBC (test code = 789-8) See_Comment L [Automated messa ge] The system which generated this result transmitted reference range: 4.26 - 5.52 10*6/?L. The reference range was not used to interpret this result as normal/abnormal. HGB (test code = 718-7) 12.6 g/dL 12.2-16.4 HCT (test code = 4544-3) 37.6 % 38.4-49.3 L MCV (test code = 787-2) 97.7 fL 81.7-95.6 H MCH (test code = 785-6) 32.7 pg 26.1-32.7 MCHC (test code = 786-4) 33.5 g/dL 31.2-35 RDW-SD (test code = 86724-4) 46.3 fL 38.5-51.6 RDW-CV (test code = 788-0) 13.0 % 12.1-15.4 PLT (test code = 777-3) See_Comment [Automated messa ge] The system which generated this result transmitted reference range: 150 - 328 10*3/?L. The reference range was not used to interpret this result as normal/abnormal. MPV (test code = 97005-1) 10.1 fL 9.8-13 NRBC/100 WBC (test code = 8621364791) See_Comment [Automated ubigrate ssage] The system which generated this result transmitted reference range: 0.0 - 10.0 /100 WBCs. The reference range was not used to interpret this result as normal/abnormal. NRBC x10^3 (test code = 7887228064) <0.01 See_Comment [Automated messa ge] The system which generated this result transmitted reference range: 10*3/?L. The reference range was not used to interpret this result as normal/abnormal. GRAN MAT (NEUT) % (test code = 770-8) 78.6 % IMM GRAN % (test code = 2389433557) 1.00 % LYMPH % (test code = 736-9) 13.0 % MONO % (test code = 5905-5) 6.7 % EOS % (test code = 713-8) 0.6 % BASO % (test code = 706-2) 0.1 % GRAN MAT x10^3(ANC) (test code = 0958911181) 5.27 10*3/uL 1.99-6.95 IMM GRAN x10^3 (test code = 7299486076) 0.07 10*3/uL 0-0.06 H LYMPH x10^3 (test code = 731-0) 0.87 10*3/uL 1.09-3.23 L MONO x10^3 (test code = 742-7) 0.45 10*3/uL 0.36-1.02 EOS x10^3 (test code = 711-2) 0.04 10*3/uL 0.06-0.53 L BASO x10^3 (test code = 704-7) <0.03 0.01-0.09 Lab Interpretation (test code = 67741-1) Abnormal [facility] TylerLactic Acid Whole [id number] 17:47:00* Test Item Value Reference Range Interpretation Comme nts LACTIC ACID (test code = 6927138443) 1.21 mmol/L [facility] TylerUS RETROPERITONEAL [id number] 20:18:05 HISTORY: Chronic kidney disease, stage II with acute renal failure. TECHNIQUE: Both kidneys are evaluated in multiple planes with the patientin different positions. FINDINGS: Right kidney is 10.1 x 4.7 x 5.3 cm in size and left kidney 11.9x 4.5 x 5.0 cm in size. Cortex of both kidneys is between 11.5 and 15.5 mm. Cortex of both kidneys appear echogenic and there is diffuse mild atrophyof the leftkidney's cortex. 11 mm cyst noted near the lower polecollecting system of the right kidney and there is focal cortical scar orcalcification in the lateral cortex of the interpolar left kidney. Quick look at the urinary bladder showed no gross pathology. Age-relatedvolume of urine in the prevoid phase was approximately 91 mL andimmediately after patient voided, there was only 3 ml of retained urine inthe bladder lumen. CONCLUSIONS:1. Normal size kidneys with no obstructive hydronephrosis.2. Echogenic cortex noted, particularly of the left kidney, consistent withchronic primary renal disease.[facility], Radiant Results Inft User - 03/10/2020 3:19 PM CDTHISTORY: Chronic kidney disease, stage II withacute renal failure.TECHNIQUE: Both kidneys are evaluated in multiple planes with the patientin different positions. FINDINGS: Right kidney is 10.1 x 4.7 x 5.3 cm in size and left kidney 11.9x 4.5 x 5.0 cm in size. Cortex of both kidneys is between 11.5 and 15.5 mm.Cortex of both kidneys appear echogenic and there is diffuse mild atrophyof the left kidney's cortex. 11 mm cyst noted near the lower polecollecting system of the right kidney and there is focal cortical scar orcalcification in the lateral cortex of the interpolar left kidney.Quick look at the urinary bladder showed no gross pathology. Age-relatedvolume of urine in the prevoid phase was approximately 91 mL andimmediately after patient voided, there was only 3 ml of retained urine inthe bladder lumen.CONCLUSIONS:1. Normal size kidneys with no obstructive hydronephrosis.2. Echogenic cortex noted, particularly of the left kidney, consistent withchronic primary renal disease. [facility] TylerXR CHEST 2 [id number] 18:41:03HISTORY: Bronchitis. TECHNIQUE: PA and lateral views of the chest are obtained. Comparison ismade with 12/15/2016 study. FINDINGS: Mild cardiomegaly noted. Increased markings are seen in bothlower lungs, most likely chronic due to pulmonary fibrosis. No pneumonia orpleural effusion. No pulmonary edema. Degenerative changes noted in themiddle and lower thoracic spines without any aggressive bone lesions orcompression deformity in the middle of lower thoracic vertebral bodies.Minimal compression in the upper plate of T4 noted. CONCLUSIONS: No signs of acute cardiopulmonary disease.[facility], Radiant Results Inft User - 10/03/2019 12:42 PM CSTHISTORY: Bronchitis.TECHNIQUE: PA and lateral views of the chest are obtained. Comparison ismade with 12/15/2016 study.FINDINGS: Mild cardiomegaly noted. Increased markings are seen in bothlower lungs, most likely chronic due to pulmonary fibrosis. No pneumonia orpleural effusion. No pulmonary edema. Degenerative changes noted in themiddle and lower thoracic spines without any aggressive bone lesions orcompression deformity in the middle of lower thoracic vertebral bodies.Minimal compression in the upper plate of T4 noted.CONCLUSIONS: No signs of acutecardiopulmonary disease.[facility] TylerFOLATE2019-09-11 13:07:00* Test Item Value Reference Range Interpretation Comme nts FOLATE SER (test code = 3220996653) 19.8 ng/mL 3-20 Lab Interpretation (test cod e = 86222-7) Normal [facility] TylerFREE [id number] 12:18:00* Test Item Value Reference Range Interpretation Comme nts FREE T3 (test code = 3836468461) 3.27 pg/mL 2.77-5.27 Lab Interpretation (test cod e = 82687-1) Normal [facility] TylerBASIC METABOLIC PANEL (NA, K, CL, CO2, GLUCOSE, BUN, CREATININE, CA)2019-05-01 11:45:00* Test Item Value Reference Range Interpretation Comme nts NA (test code = 3106029358) 139 mmol/L 135-145 K (test code = 0776070631) 4.7 mmol/L 3.5-5 CL (test code = 5638113667) 111 mmol/L 98-108 H CO2 TOTAL (test code = 9888257799) 25 mmol/L 23-31 AGAP (test code = 6937355095) 2-16 BUN (test code = 8740122574) 32 mg/dL 7-23 H GLUCOSE (test code = 4515816857) 108 mg/dL 70-110 CREATININE (test code = 6904846015) 1.20 mg/dL 0.6-1.25 CALCIUM (test code = 1903351123) 9.1 mg/dL 8.6-10.6 eGFR Calculation (Non-) (test code = 1499730288) mL/min/1.73m2 eGFR Calculation () (test code = 5653834217) mL/min/1.73m2 ANTHONY (test code = ANTHONY) Association of Glomerular Filtration Rate (GFR) and Staging of Kidney Disease*+ + + +| GFR (mL/min/1.73 m2)?| With Kidney Damage?|?Without Kidney Damage+ --------+ --------+ +|?>90?|?S tage one?|? Normal?+ ---------+ ---------+ +|?60-89? |?Stage two?|? Decreased GFR? + --+ --+ ------+|?30-59?|?Stage three?|? Stage three? + --+ --+ ------+|?15-29?|?Stage four? |? Stage four?+ -------+ -------+ +|?<15 (or dialysis)?|?Stage five? |? Stage five?+ -------+ -------+ +*Each stage assumes the associated GFR level has been in effect for at least three months.?Stages 1 to 5, with or without kidney disease, indicate chronic kidney disease.Notes: Determination of stages one and two (with eGFR >59mL/min/1.73 m2) requires estimation of kidney damage for at least three months as defined by structural or functional abnormalities of the kidney, manifested by either:Pathological abnormalities or Markers of kidney damage (including abnormalities in the composition of the blood or urine or abnormalities in imaging tests). Lab Interpretation (test code = 59454-4) Abnormal [facility] TylerVITAMIN B12, [id number] 03:01:00* Test Item Value Reference Range Interpretation Comme [facility] VIT B12 (test code = 6003656213) 703 pg/mL 240-930 ANTHONY (test code = ANTHONY) Biotin has been reported to cause a positive bias, interpret results relative to patient's use of biotin. Lab Interpretation (test code = 17934-6) Normal [facility] TylerTHYROID STIMULATING [id number] 02:42:00 * Test Item Value Reference Range Interpretation Comme nts TSH (test code = 8302429834) See_Comment L Biotin has been reported to cause a negative bias, interpret results relative to patient's use of biotin. [Automated message] The system which generated this result transmitted reference range: 0.45 - 4.70 mIU/L. The reference range was not used to interpret this result as normal/abnormal. Lab Interpretation (test code = 14825-9) Abnormal [facility] TylerRETICULOCYTES [id number] 23:08:00* Test Item Value Reference Range Interpretation Comme nts RETIC Count Automated (test code = 9154705919) 1.51 % 0.59-2.24 RETIC Absolute Count (test code = 5721980524) See_Comment [Automa janay message] The system which generated this result transmitted reference range: 0.0260 - 0.1170 10*6/?L. The reference range was not used to interpret this result as normal/abnormal. IRF % (test code = 5059772551) 13.20 % 2-19.1 RETIC-HE (test code = 9872495959) 41.6 pg 27.3-36.4 H Lab Interpretation (test code = 83080-4) Abnormal [facility] METABOLIC PANEL (NA, K, CL, CO2, GLUCOSE, BUN, CREATININE, CA)2019-04-30 16:54:00* Test Item Value Reference Range Interpretation Comme nts NA (test code = 7237824034) 139 mmol/L 135-145 K (test code = 4365959848) 4.9 mmol/L 3.5-5 Slight hemolysis CL (test code = 0669705235) 110 mmol/L 98-108 H CO2 TOTAL (test code = 4862883059) 29 mmol/L 23-31 AGAP (test code = 5687217642) <1 2-16 L BUN (test code = 9742063621) 29 mg/dL 7-23 H Slight hemolysis GLUCOSE (test code = 3208655647) 104 mg/dL 70-110 CREATININE (test code = 3819140660) 1.10 mg/dL 0.6-1.25 CALCIUM (test code = 4046455108) 9.4 mg/dL 8.6-10.6 eGFR Calculation (Non-) (test code = 3961902168) mL/min/1.73m2 eGFR Calculation () (test code = 3380878428) mL/min/1.73m2 ANTHONY (test code = ANTHONY) Association of Glomerular Filtration Rate (GFR) and Staging of Kidney Disease*+ +----- +-- ----+| GFR (mL/min/1.73 m2)?| With Kidney Damage?|?Without Kidney Damage+ +------- +---- --+|?>90?|?Stage one?|? Normal?+ +------ +--- ---+|?60-89?|?Stage two?|? Decreased GFR? + -----+ --------+ +|?3 0-59??|?Stage three?|? Stage three? + -----+ --------+ +|?1 5-29?|?Stage four? |? Stage four?+ +-------- +----- -+|?<15 (or dialysis)?|?Stage five? |? Stage five?+ +-------- +----- -+*Each stage assumes the associated GFR level has been in effect for at least three months.?Stages 1 to 5, with or without kidney disease, indicate chronic kidney disease.Notes: Determination of stages one and two (with eGFR >59mL/min/1.73 m2) requires estimation of kidney damage for at least three months as defined by structural or functional abnormalities of the kidney, manifested by either:Pathological abnormalities or Markers of kidney damage (including abnormalities in the composition of the blood or urine or abnormalities in imaging tests). Lab Interpretation (test code = 13975-5) [facility]normal [facility] TylerCT LUMBAR SPINE WO [id number] 20:45:13 Impression: No acute fracture or traumatic malalignment of the lumbar spine. Multileveldegenerativechanges of the lumbar spine. At L3-L4, there is mild centralcanal narrowing and left subarticular zone stenosis. Moderate left L3- V7tekddt foraminal narrowing. Disc bulge at L4-L5 contacts the exiting leftL4 nerve root with mild left neural foraminal narrowing. Note, MRI betterassesses intraspinal contents.* * * * * * * * ORIGINAL REPORT * * * * * * * *CT LUMBAR SPINE WO CONTRAST HISTORY: leg andhip pain , left Technique:?Contiguous thin section axial images were obtained of the lumbar spine. Sagittal and coronal reformatted images were generated. Images werereviewed in soft-tissue and bone d etail. .? Comparison: None. Findings: For the purposes of this dictation, the last well-defined interspace iscalled L5-S1.Subtle retrolisthesis of L3 on L4. Lumbar vertebral body heights are maintained. Multilevel disc degenerationwith disc vacuum phenomenon.? L1-2: No significant canal stenosis orneural foraminal narrowing. L2-3: Disc bulge. Mild right facet arthropathy. No significant centralspinal stenosis. Mild right neural foraminal narrowing.L3-4: Disc bulge. Left greater than right facet arthropathy and ligamentumflavum thickening. Left subarticular zone stenosis. Mild central canalnarrowing. Mild to moderate right and moderate left neural foraminalnarrowing.L4-5: Disc bulge. Bilateral facet arthropathy. No significant centralspinal stenosis. Mild left neural foraminal narrowing. Disc bulge contactsthe exiting left L4 nerve root.L5-S1: Disc bulge eccentric to the right. No significant canal stenosis.Bilateral facet arthropathy. Moderate right and mild to moderate leftneural foraminal narrowing. No acute fracture or traumatic malalignment of the lumbar spine. Atherosclerosis of the abdominal aorta and its branches. Bilateralsacroiliac joint degeneration. Fatty changes of the erector spinaemusculature. [facility], Radiant Results Inft User - 04/29/2019 3:45 PM CDT* * * * * * * *ORIGINAL REPORT * * * * * * * *CT LUMBAR SPINE WO CONTRASTHISTORY: leg and hip pain , leftTechnique: Contiguous thin section axial images were obtained of the lumbar spine. Sagittal and coronal reformatted images were generated. Images werereviewed in soft-tissue and bone detail. . Comparison: None.Findings: For the purposes of this dictation, the last well-defined interspace iscalled L5-S1.Subtle retrolisthesis of L3 on L4. Lumbar vertebral body heights are maintained. Multilevel disc degenerationwith disc vacuum phenomenon. L1-2: No significant canal stenosis or neural foraminal narrowing. L2-3: Disc bulge. Mild right facet arthropathy. No significant centralspinal stenosis. Mild right neural foraminal narrowing.L3-4: Disc bulge. Left greater than right facet arthropathy and ligamentumflavum thickening. Left subarticular zone stenosis. Mild central canalnarrowing. Mild to moderate right and moderate left neural foraminalnarrowing.L4-5: Disc bulge. Bilateral facet arthropathy. No significant centralspinal stenosis. Mild left neural foraminal narrowing. Disc bulge contactsthe exiting left L4 nerve root.L5-S1: Disc bulge eccentric to the right. No significant canal stenosis.Bilateral facet arthropathy. Moderate right and mild to moderate leftneural foraminal narrowing.No acute fracture or traumatic malalignment of the lumbar spine. Atherosclerosis of the abdominal aorta and itsbranches. Bilateralsacroiliac joint degeneration. Fatty changes of the erector spinaemusculature.IMP RESSIONImpression: No acute fracture or traumatic malalignment of the lumbar spine. Multileveldegenerative changes of the lumbar spine. At L3-L4, there is mild centralcanal narrowing and left subarticular zone stenosis. Moderate left L3-A8idddyt foraminal narrowing. Disc bulge at L4-L5 contacts theexiting leftL4 nerve root with mild left neural foraminal narrowing. Note, MRI betterassesses intraspinal contents.[facility] 2019-04-29 19:34:14Moderate osteoarthrosis. No acute bony abnormality is present. EXAM: XR HIPS 2 VW LEFT HISTORY: hippain COMPARISON: None FINDINGS: Imaging of the left hip demonstrates moderate uniform femoral acetabularjoint space narrowing with extensive circumferential acetabularosteophytosis. No acute fractureis seen. Enthesophyte formation withchronic fragmentation is seen about the greater trochanter. [facility], Radiant Results Inft User - 04/29/2019 2:34 PM CDTEXAM:XR HIPS 2 VW LEFTHISTORY:hip pain COMPARISON:NoneFINDINGS: Imaging of the left hip demonstrates moderate uniform femoral acetabularjoint space narrowing with extensive circumferential acetabularosteophytosis. No acute fracture is seen. Enthesophyte formation withchronic fragmentation is seen about the greater trochanter.IMPRESSIONModerate osteoarthrosis.No acute bony abnormality is present.[facility] Stroke [id number] 18:40:00* Test Item Value Reference Range Interpretation Comme nts TROPONIN I (test code = 7002601550) 0.005 ng/mL See_Comment [Automated message] The system which generated this result transmitted reference range: <=0.034. The reference range was not used to interpret this result as normal/abnormal. ANTHONY (test code = ANTHONY) Equal or Less than 0.034 ng/ml---Normal?Not e: Cardiac troponin begins to rise 3-4 hours after the onset of ischemia. Repeat in 4-6 hours if the sample was drawn within 3-4 hours of the onset of the symptom and found normal. Between 0.035 and 0.120 ng/mL--- Borderline. Questionable myocardial injury or necrosis?Note: Serial measurement may be necessary to confirm or exclude the diagnosis of myocardial injury or necrosis; Clinical correlation (symptoms, EKGs, imaging studies, and others) required; Repeat in 4-6 hours if clinically indicated.? Equal or Higher than 0.121 ng/mL---Abnormal. Myocardial Injury or Necrosis Likely? Biotin has been reported to cause a negative bias, interpret results relative to patient's use of biotin.? ? Lab Interpretation (test code = 46351-9) Normal [facility]CT STR[facility]KE HEAD WO [id number] 18:34:52 Impression: No acute intracranial hemorrhage or mass effect. Redemonstration of chronicleft occipital temporal infarct. * * * * * * * * ORIGINAL REPORT * * * * * * * *CT STROKE HEAD WO CONTRAST HISTORY: Stroke suspected, focal neuro deficit, < 6 hrs Stroke suspected,focal neuro deficit, > 6 hrs Comparison: 02/13/2016 Technique: Routine unenhanced brain CT.? Findings: No acute intracranial hemorrhage, extracerebral fluid collection, midlineshift or herniation. No definite acute transcortical infarction. Probable chronic ischemicchanges. Intracranial atherosclerosis. Chronic left occipital temporalinfarct with ex vacuo dilatation of the adjacent left lateral ventricle.Ventricles are prominent but cerebral volume is age appropriate. Mildcerebellar volume loss. No depressed calvarial fracture. Bilateral lens surgery. Visualized paranasal sinuses are essentially clear. [facility] lts Inft User - 04/29/2019 1:35 PM CDT* * * * * * * * ORIGINAL REPORT * * * * * * * *CT STROKE HEADWO CONTRASTHISTORY: Stroke suspected, focal neuro deficit, < 6 hrs Stroke suspected,focal neuro deficit, > 6 hrs Comparison: 02/13/2016 Technique: Routine unenhanced brain CT. Findings:No acute intracranial hemorrhage, extracerebral fluid collection, midlineshift or herniation. No definite acute transcortical infarction. Probable chronic ischemicchanges. Intracranial atherosclerosis. Chronicleft occipital temporalinfarct with ex vacuo dilatation of the adjacent left lateral ventricle.Ventricles are prominent but cerebral volume is age appropriate. Mildcerebellar volume loss.No depressed calvarial fracture. Bilateral lens surgery. Visualized paranasal sinuses are essentially clear. IMPRESSIONImpression:No acute intracranial hemorrhage or mass effect. Redemonstration of chronicleft occipital temporal infarct.[facility] TyleraPTT - ED Stroke [id number] 18:31:00* Test Item Value Reference Range Interpretation Comme nts APTT Patient (test code = 3173-2) See_Comment L [Automated message] The system which generated this result transmitted reference range: 23 - 38 Seconds. The reference range was not used to interpret this result as normal/abnormal. ANTHONY (test code = ANTHNOY) The [facility] patient population mean normal value for aPTT is 30 seconds. Lab Interpretation (test code = 15223-2) Abnormal [facility] (NA, K, CL, CO2, Glucose, BUN, Creatinine, CA) - ED Stroke [id number] 18:29:00* Test Item Value Reference Range Interpretation Comme nts NA (test code = 9941228002) 142 mmol/L 135-145 K (test code = 1121546973) 5.3 mmol/L 3.5-5 H CL (test code = 8987456752) 112 mmol/L 98-108 H CO2 TOTAL (test code = 8920308847) 24 mmol/L 23-31 AGAP (test code = 3163351129) 2-16 BUN (test code = 3100676689) 40 mg/dL 7-23 H GLUCOSE (test code = 1128403920) 122 mg/dL 70-110 H CREATININE (test code = 4747219214) 1.29 mg/dL 0.6-1.25 H CALCIUM (test code = 7706427943) 10.1 mg/dL 8.6-10.6 eGFR Calculation (Non-) (test code = 7993534418) mL/min/1.73m2 eGFR Calculation () (test code = 1581428020) mL/min/1.73m2 ANTHONY (test code = ANTHONY) Association of Glomerular Filtration Rate (GFR) and Staging of Kidney Disease*+ + + +| GFR (mL/min/1.73 m2)?| With Kidney Damage?|?Without Kidney Damage+ --------+ --------+ +|?>90?|?S tage one?|? Normal?+ ---------+ ---------+ +|?60-89? |?Stage two?|? Decreased GFR? + --+ --+ ------+|?30-59?|?Stage three?|? Stage three? + --+ --+ ------+|?15-29??|?Stag e four? |? Stage four?+ -------+ -------+ +|?<15 (or dialysis)?|?Stage five? |? Stage five?+ -------+ -------+ +*Each stage assumes the associated GFR level has been in effect for at least three months.?Stages 1 to 5, with or without kidney disease, indicate chronic kidney disease.Notes: Determination of stages one and two (with eGFR >59mL/min/1.73 m2) requires estimation of kidney damage for at least three months as defined by structural or functional abnormalities of the kidney, manifested by either:Pathological abnormalities or Markers of kidney damage (including abnormalities in the composition of the blood or urine or abnormalities in imaging tests). Lab Interpretation (test code = 14433-0) Abnormal [facility] Tyler[facility]thrombin Time / INR - ED Stroke Alert 2019-04-29 18:28:00* Test Item Value Reference Range Interpretation Comme nts PROTIME PATIENT (test code = 5964-2) See_Comment [Automated messa ge] The system which generated this result transmitted reference range: 12.0 - 14.7 Seconds. The reference range was not used to interpret this result as normal/abnormal. INR (test code = 6301-6) Normal INR <1.1; Warfarin Therapeutic range 2.0 to 3.0 or 2.5 to 3.5, depending upon the indications. Lab Interpretation (test code = 30151-2) Normal [facility] / Hemogram - ED Stroke [id number] 18:21:00* Test Item Value Reference Range Interpretation Comme nts WBC (test code = 6690-2) See_Comment [Automated message] The system which generated this result transmitted reference range: 4.20 - 10.70 10*3/?L. The reference range was not used to interpret this result as normal/abnormal. RBC (test code = 789-8) See_Comment L [Automated message] The system which generated this result transmitted reference range: 4.26 - 5.52 10*6/?L. The reference range was not used to interpret this result as normal/abnormal. HGB (test code = 718-7) 12.5 g/dL 12.2-16.4 HCT (test code = 4544-3) 38.8 % 38.4-49.3 MCH (test code = 785-6) 34.0 pg 26.1-32.7 H MCV (test code = 787-2) 105.4 fL 81.7-95.6 H MCHC (test code = 786-4) 32.2 g/dL 31.2-35 PLT (test code = 777-3) See_Comment L [Automated message] The system which generated this result transmitted reference range: 150 - 328 10*3/?L. The reference range was not used to interpret this result as normal/abnormal. MPV (test code = 59051-4) 10.7 fL 9.8-13 RDW-CV (test code = 788-0) 13.1 % 12.1-15.4 RDW-SD (test code = 22761-5) 50.8 fL 38.5-51.6 NRBC x10^3 (test code = 9901214212) <0.01 See_Comment [Automated messa ge] The system which generated this result transmitted reference range: 10*3/?L. The reference range was not used to interpret this result as normal/abnormal. NRBC/100 WBC (test code = 2914159794) See_Comment [Automated messa ge] The system which generated this result transmitted reference range: 0.0 - 10.0 /100 WBCs. The reference range was not used to interpret this result as normal/abnormal. IPF % (test code = 9236800798) 1.2-10.7 Lab Interpretation (test code = 73653-5) Abnormal [facility] Notes Date/Time Note Provider Source 2023-05-05 11:02:20 EoXiky8IqGJ6+[id number] [id number] [id number]3A71:02:20F ormatting of this note is different from the original.Requested Prescriptions Pending Prescriptions Disp Refills LEVETIRACETAM 250 mg tablet [Pharmacy Med Name: levETIRAcetam 250 MG TABLET] 60 tablet 0 Sig: TAKE ONE TABLET BY MOUTH EVERY MORNING AND TAKE ONE TABLET BY MOUTH EVERY EVENING Last office visit: 03/31/2023Follow up scheduled for : none Last filled: 03/31/2023harmacy: [facility] [id number] - [place], [place] - [address] [facility] [id number] [facility] [place] [id number]: [phone] Uxptjizfgbytka signed by Vipin Chaudhry MA at 05/05/2023 11:03 AM [id number] encounter QbxtAC2511-65-70S13:03:36Telephone encounter [id number] 9|[id number] for patient [id number] Ny[id number] QFVCGPOHQVJEHAHO6004-36-71O20:03:361.2.840 .[id number]|1.2.840.755470.1.13.104. [id number] [facility]"
[2023-11-18] MEDS ORDERED: HYDROCODONE/APAP 5/325 MG TAB ONE (13:18)
--- NOTE | 2023-11-18 15:12 | RAD REPORT ---
EXAM DESCRIPTION: RAD - Shoulder Right 2 View - 11/18/2023 3:01 pm CLINICAL HISTORY: Right shoulder pain FINDINGS: No fracture or dislocation is seen. Moderate osteoarthritis AC joint consisting of joint space narrowing and osteophytes
--- NOTE | 2023-11-18 15:33 | EDPHYS ---
Physician Documentation [facility] Name: Tito Clayton Jr Age: 88 yrs Sex: Male : 1935 Arrival Date: 11/18/2023 Time: 12:54 Bed IW1 Private MD: ED Physician Donaldo Cote HPI: 11/17 14:44 This 88 yrs old Male presents to ER via Ambulatory with complaints of Right shoulder ms3 pain. 14:44 88-year-old male with past medical history of hypertension, stroke, diabetes presents ms3 to the emergency department for right shoulder pain that began 2 days prior to arrival. Patient rates pain a 5/10. Patient denies any alleviating or inciting factors. Patient denies fevers, chills, nausea, vomiting. Historical: - Allergies: 13:12 No Known Allergies; ll1 - PMHx: 13:12 Hypertensive disorder; Cancer; stroke (Cancer); ll1 - PSHx: 13:12 B knee (Cancer); ll1 - Immunization history:: Adult Immunizations up to date. - Social history:: Smoking status: Patient denies any tobacco usage or history of. ROS: 14:44 Constitutional: Negative for fever, and chills. Neck: Negative for injury, pain, and ms3 swelling, Cardiovascular: Negative for chest pain, and palpitations. Respiratory: Negative for shortness of breath, cough, wheezing, and pleuritic chest pain, Abdomen/GI: Negative for abdominal pain, nausea, vomiting, diarrhea, and constipation, Skin: Negative for injury, rash, and discoloration, 14:44 MS/extremity: Positive for pain, of the Right shoulder, Exam: 14:44 Constitutional: This is a well developed, well nourished patient who is awake, alert, ms3 and in no acute distress. Head/Face: Normocephalic, atraumatic. Neck: Trachea midline, no cervical lymphadenopathy. Supple, full range of motion without nuchal rigidity, or vertebral point tenderness. No Meningismus. Chest/axilla: Normal chest wall appearance and motion. Nontender with no deformity. Cardiovascular: Regular rate and rhythm with a normal S1 and S2. No gallops, murmurs, or rubs. Normal PMI, no JVD. No pulse deficits. Respiratory: Lungs have equal breath sounds bilaterally, clear to auscultation and percussion. No rales, rhonchi or wheezes noted. No increased work of breathing, no retractions or nasal flaring. Abdomen/GI: Soft, non-tender, with normal bowel sounds. No distension or tympany. No guarding or rebound. No evidence of tenderness throughout. Skin: Warm, dry with normal turgor. Normal color with no rashes, no lesions, and no evidence of cellulitis. 14:44 Musculoskeletal/extremity: Extremities: noted in the Right shoulder: pain, There is no evidence of erythema, swelling, Vital Signs: 13:13 BP 124 / 56; Pulse 64; Resp 18; Temp 97.8; Pulse Ox 97% ; Weight 97.98 kg; Height 5 ft. ll1 10 in. ; Pain 0/10; 13:13 Body Mass Index 30.99 (97.98 kg, 177.8 cm) ll1 13:13 Pain Scale: Adult ll1 MDM: 13:19 Patient medically screened. ms3 14:44 Differential diagnosis: tendonitis, Nerve impingement versus spurring. ms3 15:33 Data reviewed: vital signs, nurses notes, radiologic studies, and as a result, I will ms3 discharge patient. I considered the following discharge prescriptions or medication management in the emergency department Medications were administered in the Emergency Department. See MAR. Historians other than the Patient: Patient's uovgcd-qz-jfc. Counseling: I had a detailed discussion with the patient and/or guardian regarding the historical points, exam findings, and any diagnostic results supporting the discharge/admit diagnosis, radiology results, the need for outpatient follow up, to return to the emergency department if symptoms worsen or persist or if there are any questions or concerns that arise at home. Special discussion: I discussed with the patient/guardian in detail that at this point there is no indication for admission to the hospital. It is understood, however, that if the symptoms persist or worsen the patient needs to return immediately for re-evaluation. ED course: Discussed x-ray findings with patient. Patient to follow-up with orthopedics in 2 to 3 days. Patient understands and agrees with plan. All questions were answered. Return precautions discussed include worsening symptoms, or any other concerns. On reevaluation patient is alert, in no apparent distress, nontoxic-appearing, neurovascularly intact right upper extremity. 11/17 13:06 Order name: Shoulder Right (2 View) XRAY; Complete Time: 15:15 ms3 Administered Medications: 13:21 Drug: HYDROcodone-acetaminophen PO 5 mg-325 mg 1 tabs PO once Route: PO; ll1 15:35 Follow up: Response: No adverse reaction as6 Disposition Summary: 11/18/23 15:33 Discharge Ordered Notes: Location: Home ms3 Condition: Stable ms3 Diagnosis - Pain in right shoulder ms3 Followup: ms3 - With: Jeremiah Espinosa MD - When: 2 - 3 days - Reason: Recheck today's complaints Discharge Instructions: - Discharge Summary Sheet ms3 - Shoulder Pain ms3 Forms: - Medication Reconciliation Form ms3 - Thank You Letter ms3 - Antibiotic Education ms3 - Prescription Opioid Use ms3 - Patient Portal Instructions ms3 - Leadership Thank You Letter ms3 Signatures: Dispatcher [employer] Ly Bañuelos RN RN ll1 Donaldo Cote DO DO ms3 Sabino Vizcaino RN as6
--- NOTE | 2023-11-18 15:33 | ER ---
Nurse's Notes [facility] Name: Tito Clayton Jr Age: 88 yrs Sex: Male : 1935 Arrival Date: 11/18/2023 Time: 12:54 Bed IW1 Private MD: Diagnosis: Pain in right shoulder Presentation: 11/17 13:13 Chief complaint: Patient states: R arm numbness and unable to move well since . ll1 No trauma or falls. Coronavirus screen: Client denies travel out of the [place] in the last 14 days. At this time, the client does not indicate any symptoms associated with coronavirus-19. Ebola Screen: Patient denies travel to an Ebola-affected area in the 21 days before illness onset. Initial Sepsis Screen: Does the patient meet any 2 criteria? No. Patient's initial sepsis screen is negative. Does the patient have a suspected source of infection? No. Patient's initial sepsis screen is negative. Risk Assessment: Do you want to hurt yourself or someone else? Patient reports no desire to harm self or others. Onset of symptoms was November 16, 2023. 13:13 Method Of Arrival: Ambulatory ll1 13:13 Acuity: MURRAY 3 ll1 Historical: - Allergies: 13:12 No Known Allergies; ll1 - PMHx: 13:12 Hypertensive disorder; Cancer; stroke (Cancer); ll1 - PSHx: 13:12 B knee (Cancer); ll1 - Immunization history:: Adult Immunizations up to date. - Social history:: Smoking status: Patient denies any tobacco usage or history of. Screenin:35 [facility] ED Fall Risk Assessment (Adult) History of falling in the last 3 months, as6 including since admission No falls in past 3 months (0 pts) Confusion or Disorientation No (0 pts) Intoxicated or Sedated No (0 pts) Impaired Gait Yes (1 pt) Mobility Assist Device Used Yes (1 pt) Altered Elimination No (0 pt) Score/Fall Risk Level 0 - 2 = Low Risk Oriented to surroundings, Maintained a safe environment, Educated pt \T\ family on fall prevention, incl call for assistance when getting out of bed, Assessed \T\ reinforced patient's understanding of fall precautions, Hourly rounding (assess needs \T\ fall precautionary measures) done. Abuse screen: Denies threats or abuse. Denies injuries from another. Nutritional screening: No deficits noted. Tuberculosis screening: No symptoms or risk factors identified. Assessment: 15:35 Reassessment: Patient appears in no apparent distress at this time. Respiratory: as6 Respiratory effort is even, unlabored, Respiratory pattern is regular, symmetrical. Vital Signs: 13:13 BP 124 / 56; Pulse 64; Resp 18; Temp 97.8; Pulse Ox 97% ; Weight 97.98 kg; Height 5 ft. ll1 10 in. ; Pain 0/10; 13:13 Body Mass Index 30.99 (97.98 kg, 177.8 cm) ll1 13:13 Pain Scale: Adult ll1 ED Course: 12:58 Patient arrived in ED. im 13:00 Donaldo Cote DO is Attending Physician. ms3 13:14 Triage completed. ll1 15:03 Shoulder Right (2 View) XRAY In Process Unspecified. EDMS 15:32 Jeremiah Espinosa MD is Referral Physician. ms3 15:35 Arm band placed on. as6 15:35 Patient has correct armband on for positive identification. Provided Education on: as6 follow up. 15:35 No provider procedures requiring assistance completed. Patient did not have IV access as6 during this emergency room visit. Administered Medications: 13:21 Drug: HYDROcodone-acetaminophen PO 5 mg-325 mg 1 tabs PO once Route: PO; ll1 15:35 Follow up: Response: No adverse reaction as6 Medication: 15:35 VIS not applicable for this client. as6 Outcome: 15:33 Discharge ordered by MD. ms3 15:35 Discharged to home with significant other, as6 15:35 Condition: stable 15:35 Discharge instructions given to patient, significant other, Instructed on discharge instructions, follow up and referral plans. Demonstrated understanding of instructions, follow-up care, 15:41 Patient left the ED. as6 Signatures: Dispatcher [employer] EDMS Ly Rodriguez RN RN ll1 Donaldo Cote DO DO ms3 Sabino Vizcaino RN RN as6 Lisa Willis im
[2023-11-18 15:58] VITALS: BP 124/56; TEMP 97.8; O2SAT 97
== END 2023-11-18 15:41 | disposition home or self-care (01) ==
LOC: ER 12:54
DX: M25.511 Pain in right shoulder (principal); I10 Essential (primary) hypertension
CPT/HCPCS: 99283